=== PATIENT | male | born 1965 | race Caucasian/White ===

== ENCOUNTER 2022-08-14 10:14 | Outpatient (CLI) | payer OTHER, SELFPAY ==
--- OUTSIDE RECORDS SUMMARY | 2022-08-14 10:18 | XMS_ITS | Encounter Summary ---
:1965 Author Organization [facility] Address [address] [place] [address] Care Team Providers Name Role Phone Unavailable Primary Care Provider Unavailable Encounter Details Date Type Department Care Team Description 06/25/2018 Lab RST RO LMP Wil Stoddard, Malignant Neoplasm Of [address] [facility] [place] [address] ILYA Henderson [id number] Social History Tobacco Use Types Packs/Day Years Used Date Smoking Tobacco: Never Assessed Sex Assigned at Date Recorded Male 07/18/2018 7:58 AM CDT documented as of this encounter Plan of Treatment Not on filedocumented as of this encounter Procedures Procedure Name Priority Date/Time Associated Diagnosis Comme nts PATHOLOGY REVIEW OF Routine 06/27/2018 10:38 AM Malignant Neop lasm Results for this OUTSIDE MATERIAL CDT Of Face Basal Cell proce dure are in the results section. documented in this encounter Results Pathology Review of Outside Material (06/27/2018 10:38 AM CDT) Component Value Ref Test Analysis Performed At [facility] Range Method Time Signature Material Received A. [id number]: Skin, forehead 01/2018 [facility] ? 1 stained slide, 1 block 3:41 PM LABORATORIES - CDT [facility] Participated in Romario Avitia 07/01/2018 [facility] C crys D.O.-Pathology 3:41 PM LABORATORIES - Interpretation Fellow [facility] Report Oswald Saucedo M.D. 07/01/[address] [facility] electronically I verify that I have examined all relevant slides/ma terials 3:41 PM LABORATORIES - signed by for the specimen(s) and rendered or confirmed the diagnosi s. [facility] 07/01/2018 [facility] 3:41 PM LABORATORIES - CDT [facility] Interpretation FINAL DIAGNOSIS 07/01/2018 [facility] JAILYN A. ??Skin, forehead, [id number], 06/05/2018: ??Nodular and 3:41 PM LABORATORIES - infiltrative basal cell carcinoma, involving biopsy border CDT [facility] Specimen Anatomical Collection Method Collection Time Receive d Time (Source) Location / / Volume Laterality Varies 06/27/2018 10:38 06/27/2018 AM CDT 10:38 AM CDT Narrative This result has an attachment that is no t available. Wil Stoddard M.D. LAB SURG PATH ORDERABLES Performing Organization Address City/State/ZIP Code Phon e Number [facility] LABORATORIES - [address] [place], [place] [address] [facility] documented in this encounter Visit Diagnoses Diagnosis Malignant Neoplasm Of Face Basal Cell documented in this encounter
--- OUTSIDE RECORDS SUMMARY | 2022-08-14 10:18 | XMS_ITS | Clinical Summary ---
:1965 Author Organization [facility] [place] [address] Care Team Providers Name Role Phone Luis Daily MD Primary Care Provider Allergies No known active allergies Medications Medication Sig Dispensed Refills Start Date End Date Status meloxicam 15 mg Take 1 Tablet (15 30 tablet. 1 02/03/2021 Active tabletIndications: DDD mg) by mouth once (degenerative disc daily. disease), lumbar Active Problems No known active problems Encounters Date Type Specialty Care Team Description 06/18/2022 Office Visit Deysi Figueroa, Ear Problem (Recheck L PA ear); Sinus Pro blem (Still having sinus is sues/) 06/18/2022 Travel 06/11/2022 Telephone Deysi Figueroa, [facility] PA from Last 3 Months Immunizations Name Administration Dates Next Due COVID-19 vaccine (Moderna 02/24/2021, 01/27/2021 100mcg/0.5mL) PAVITHRA HONG Hepatitis A (Adult) 01/10/2011 Hepatitis B, Unspecified 04/04/1994, 02/28/1994 Influenza Virus, Unspecified 09/24/1994 Influenza, IIV3 (Age 6-35 mos) 08/10/2011 Influenza, IIV3 (Age >=3 years) 08/06/2014 Influenza, IIV4 (=>6mos) MDV 08/02/2020, 08/21/2019, 018, 08/09/2017, 08/13/2016, 08/05/2015 Tdap 05/13/2020 Social History Tobacco Use Types Packs/Day Years Used Date Never Smoker Smokeless Tobacco: Never Used Tobacco Cessation: Counseling Given: Yes Alcohol Use Standard Drinks/Week Comments Yes 0 (1 standard drink = 0.6 oz pure alcoho l) 2 beers on weekends Alcohol Habits Answer Date Recorded How often do you have a drink containing alcohol? Not asked How many drinks containing alcohol do you have on a Not aske d typical day when you are drinking? How often do you have six or more drinks on one Not asked occasion? Comment: 2 beers on weekends 03/03/2018 Sex Assigned at Date Recorded Not on file Obstetrics History Last Filed Vital Signs Vital Sign Reading Time Taken Comments Blood Pressure 95/61 06/18/2022 2:57 PM CDT Pulse 92 06/18/2022 2:57 PM CDT Temperature 36.9 ??C (98.4 ??F) 06/18/2022 2:57 PM CDT Respiratory Rate 16 03/14/2021 8:39 AM CDT Oxygen Saturation 97% 05/02/2022 1:44 PM CDT Inhaled Oxygen Concentration - - Weight 88.9 kg (196 lb) 06/18/2022 2:57 PM CDT Height - - Body Mass Index - - Plan of Treatment Health Maintenance Due Date Last Done Comments BMI (ht and wt on same day) for 1982 age 18+ Hepatitis C screening for age 0604/05/1982 18-79 Colonoscopy through age 75 2009 Lipids for age 45-75 2009 Zoster (shingles) series for age 0604/05/2014 50+ (1 of 2) Depression screening for age 12+ 03/20/2022 03/20/2021 COVID-19 vaccine series (4 - 04/24/2022 02/27/2022, 021, Booster for Moderna series) 01/27/2021 Influenza for age 50-64 06/28/2022 08/02/2020, 08/21/2019, 08/19/2018, Additional history exists Tetanus booster 05/13/2030 05/13/2020 Tdap Completed 05/13/2020 Results Not on filefrom Last 3 Months Insurance Payer Benefit Plan / Subscriber ID Effective Dates Phone Addre ss Type Group WC WORKERS COMP [facility] [id number] 2013-Prese [id number] [id number] MEDICA MEDICA CHOICE [id number] 2021-Present [address] [address] [place] [address] (Work) [id number] Vince Haywood Workers Comp Self 1965 [address] (Home) [place] [phone] [place], [place] (Work) [id number] Vince Haywood Workers Comp Self 1965 [address] (Home) [place] [address] Care Teams Labeling Specialist Relationship Specialty Start Date End Date Luis Daily MD PCP - General Internal Medicine 09/23/191999 [place] [address]
--- OUTSIDE RECORDS SUMMARY | 2022-08-14 10:18 | XMS_ITS | Encounter Summary ---
:1965 Author Organization [facility] Address [address] [place] [address] Care Team Providers Name Role Phone Unavailable Primary Care Provider Unavailable Reason for Visit Appointment Request (Routine) - Closed Specialty Diagnoses / Procedures Referred By Contact Refer red To Contact Dermatology [facility] [address] [facility] [address] [address] Referral ID Status Reason Start Date Expiration Date Visits Requ ested Visits Authorized [id number] Closed 06/17/2018 06/17/2019 1 Encounter Details Date Type Department Care Team Description 08/13/2018 Procedure visit Department of Des Tony Neoplasm Dermatology in [place] Of Face Basal Cell [place], [place] [address] [place] [address] (Primary Dx) [address] [place] [phone] Social History Tobacco Use Types Packs/Day Years Used Date Smoking Tobacco: Never Assessed Sex Assigned at Date Recorded Male 07/18/2018 7:58 AM CDT documented as of this encounter Last Filed Vital Signs Vital Sign Reading Time Taken Comments Blood Pressure 120/77 08/13/2018 9:32 AM CDT Pulse 75 08/13/2018 9:32 AM CDT Temperature - - Respiratory Rate - - Oxygen Saturation - - Inhaled Oxygen Concentration - - Weight - - Height - - Body Mass Index - - documented in this encounter Procedure Notes Wil Stoddard M.D. - 08/13/2018 9:30 AM CDT PREOP INDICATION: REMOVAL. Date of Surgery: 08/13/2018 Surgeon: Dr. Tony Polishing Machine Operator Helper: Dr. Wil Stoddard M.D. Location: [facility] Floor:16 Room:[facility] Visit Type: Outpatient PostOp Diagnosis: Recurrent nodular basal cell carcinoma Anatomic Location: Forehead Preoperative size: 1.2 x 1.3 cm [facility] number: 7/8 Procedure: Mohs micrographic surgery with complex layered closure. Prior to the procedure, final verification of the patient identity and correct marked surgical site was performed. Procedural pause conducted to verify: correct patient identity, procedure to be performed and as applicable, correct side and site, correct patient position, and availability of implants, special equipment or special requirements. INFORMED CONSENT Discussed the risks, benefits, alternatives, and the necessity of other members of the healthcare team participating in the procedure. All questions answered and consent given. PATIENT EDUCATION Ready to learn, no apparent learning barriers were identified; learning preferences include listening. Explained diagnosis and treatment plan; patient expressed understanding of the content. Preoperative medications: None The anesthesia used was 1% lidocaine and 0.25% bupivacaine with 1:200,000 epinephrine. The skin was prepped in a sterile fashion with Hibiclens. Histologic tumor-free marginswere obtained in 1 stages (2 blocks) by standard Mohs micrographic techniques with the Mohs surgeon performing both the surgery and pathology. Postoperative size: 1.8 x 1.7 cm. Anesthesia with 1% lidocaine with epinephrine 1:200,000 and another sterile prep were performed. A complex layered closure was planned, and Burow's triangles were excised from opposite poles of the defect in the direction of the skin tension lines. The wound was extensively undermined, and hemostasis was obtained with electrocoagulation. The wound edges were closed with 4-0 Vicryl and 5-0 Monocryl subcutaneous sutures and 6-0 nylon skin sutures. Postoperative length: 4.2 cm. Estimated blood loss: Minimal. Complications: None. Wound care: Routine. Postoperative medications: None Associated attestation - Des Tony M.D. - 08/13/2018 1:19 PM CDT Having reviewed the history, examined the patient, as well as discussed management, I agree with theimpression and plan as documented by Wil Stoddard MD ([phone]) who assisted me. In addition, I was also present for the critical portion and immediately available for the entire procedure we performed. documented in this encounter Consult Notes Wil Stoddard M.D. - 08/13/2018 9:30 AM CDT Referral Susie Simpson Chief Complaint Recurrent nodular basal cell carcinoma, forehead HISTORY OF THE PRESENT ILLNESS Vince Haywood is a pleasant 53 y.o. male who comes in for definitive surgical treatment of a longstanding and recurrent basal cell carcinoma involving the midline forehead. [facility] this lesion on 07/18/2018. He has had this growth for approximately 15 years. It has been treated with excision and cryotherapy on multiple previous occasions. He was recently rebiopsied in May by outside providers revealing the recurrence. He has no other skin concerns today. He is accompanied by his . The dermatologic surgery preoperative information sheet was reviewed. The patient endorses a historyof prior skin cancer. The patient denies a history heart disease, pacemaker, defibrillator, lung disease, liver disease, infectious disease, diabetes, organ transplant, bleeding problems or high blood pressure. The patient denies artificial joints or other implants. He does not require antibiotics prior to other surgical procedures. Daily aspirin: None Anticoagulation: None Tobacco use: None Alcohol use: Occasionally PHYSICAL EXAM Vitals: Vitals: 08/13/18 0932 BP: 120/77 Pulse: 75 General: Awake, alert, in no acute distress, and with appropriate affect. Skin: A limited skin examination was performed per patient preference. On midline forehead there is again visualized a small flesh-colored scar an abnormal nodular texture to the skin concerning for residual basal cell carcinoma. There is 1 small scaly portion at the inferior for o'clock position of the lesion concerning for recurrent disease. The whole site measures approximately 1.2 x 1.3 cm in size. IMPRESSION AND PLAN #1 Recurrent nodular basal cell carcinoma, forehead The patient presents to our surgical area today for definitive treatment of the above lesion. Given the nature and location of this lesion we recommended Mohs surgery. We discussed the benefits of lesion removal today. We discussed the risks including, but not limited to, infection, bleeding, pain, scar formation, and lesion recurrence. We discussed the slightly lower clearance rates with recurrent lesions, approximately 95%. We also discussed the risk of damage to sensory and motor nerves in this area both temporary and permanent. Patient wished to proceed. In brief, the lesion was cleared in 1 stages and closed in a vertical primary fashion. Skin sutures that need to be removed in 7 days. The patient tolerated the procedure well. Please see the operative note for further details. PROCEDURAL PAUSE Procedural pause conducted to verify: correct patient identity, procedure to be performed, and as applicable, correct side and site, correct patient position, and availability of implants, special equipment, or special requirements. PATIENT EDUCATION Ready to learn. No apparent learning barriers were identified. Learning preferences include listening. Explained diagnosis and treatment plan; patient/guardian of patient expressed understanding of thecontent. INFORMED CONSENT Discussed the risks, benefits, alternatives, and the necessity of other members of the healthcare team participating in the procedure. All questions answered and consent given. Associated attestation - Des Tony M.D. - 08/13/2018 1:18 PM CDT Having reviewed the history, examined the patient, as well as discussed management, I agree with theimpression and plan as documented by Wil Stoddard MD ([phone]) who assisted me. In addition, I was also present for the critical portion and immediately available for the entire procedure we performed. documented in this encounter Plan of Treatment Pending Results Name Type Priority Associated Diagnoses Date/Ti az MOHS SURGICAL CASE Pathology and Routine 08/13/20 18 1:29 PM Cytology CDT documented as of this encounter Visit Diagnoses Diagnosis Malignant Neoplasm Of Face Basal Cell - Primary documented in this encounter Administered Medications Active Administered Medications - up to 3 most recent administrations Medication Order MAR Action Action Date Dose Rate Site parbgjazics-ckaiqqnpf-OVLYRHPoqgu Given 08/13/2018 12:44 PM CDT 4 mL 0.25%-1%-1:200,000 injection 2-25 mL 2-25 mL, injection, As needed, may repeat if the patient complains of pain/discomfort at the site up to 50 mL for entire procedure, Starting on Sat08/13/18 at 0934 lidocaine-EPINEPHrine 1%-1:200,000 injection Given 8 10:00 AM CDT 6 mL 2-50 mL (XYLOCAINE W/EPI) 2-50 mL, injection, As needed, may repeat if the patient complains of pain/discomfort at the site up to 50 mL for entire procedure, Starting on Sat08/13/18 at 0934 documented in this encounter
--- OUTSIDE RECORDS SUMMARY | 2022-08-14 10:18 | XMS_ITS | Encounter Summary ---
:1965 Author Organization [facility] Address [address] [place] [address] Care Team Providers Name Role Phone Unavailable Primary Care Provider Unavailable Encounter Details Date Type Department Care Team Description 06/25/2018 Abstract DATA ABSTRACTION Provider, Historical Social History Tobacco Use Types Packs/Day Years Used Date Smoking Tobacco: Never Assessed Sex Assigned at Date Recorded Male 07/18/2018 7:58 AM CDT documented as of this encounter Plan of Treatment Not on filedocumented as of this encounter Visit Diagnoses Not on filedocumented in this encounter
--- OUTSIDE RECORDS SUMMARY | 2022-08-14 10:18 | XMS_ITS | Encounter Summary ---
:1965 Author Organization [facility] Address [address] [place] [address] Care Team Providers Name Role Phone Unavailable Primary Care Provider Unavailable Encounter Details Date Type Department Care Team Description 06/25/2018 Orders Only Department of Wil Stoddard, Malignant Neoplasm Of Dermatology in M.D. Face Basal Cell [place], [place] ILYA Henderson (Primary Dx) [address] [facility] [address] [place] [address] Social History Tobacco Use Types Packs/Day Years Used Date Smoking Tobacco: Never Assessed Sex Assigned at Date Recorded Male 07/18/2018 7:58 AM CDT documented as of this encounter Plan of Treatment Not on filedocumented as of this encounter Results Pathology Review of Outside Material (06/27/2018 10:38 AM CDT) Component Value Ref Test Analysis Performed At [facility] Range Method Time Signature Material Received A. [id number]: Skin, forehead 01/2018 [facility] ? 1 stained slide, 1 block 3:41 PM LABORATORIES - [facility] Participated in Romario Avitia 07/01/2018 [place] [facility] C the D.O.-Pathology 3:41 PM LABORATORIES - Interpretation Fellow [facility] Report Oswald Saucedo M.D. 07/01/2018 [facility] electronically I verify that I have examined all relevant slides/ma terials 3:41 PM LABORATORIES - signed by for the specimen(s) and rendered or confirmed the diagnosi s. [facility] 07/01/2018 [facility] 3:41 PM LABORATORIES - [facility] Interpretation FINAL DIAGNOSIS 07/01/2018 [facility] JAILYN A. ??Skin, forehead, [id number], 06/05/2018: ??Nodular and 3:41 PM LABORATORIES - infiltrative basal cell carcinoma, involving biopsy border CDT [facility] Specimen Anatomical Collection Method Collection Time Receive d Time (Source) Location / / Volume Laterality Varies 06/27/2018 10:38 06/27/2018 AM CDT 10:38 AM CDT Narrative This result has an attachment that is no t available. Wil Stoddard M.D. LAB SURG PATH ORDERABLES Performing Organization Address City/State/ZIP Code Phon e Number [facility] LABORATORIES - [address] [place], [place] [address] [facility] documented in this encounter Visit Diagnoses Diagnosis Malignant Neoplasm Of Face Basal Cell - Primary documented in this encounter
--- OUTSIDE RECORDS SUMMARY | 2022-08-14 10:18 | XMS_ITS | Encounter Summary ---
:1965 Author Organization [facility] Address [address] [place] [address] Care Team Providers Name Role Phone Unavailable Primary Care Provider Unavailable Encounter Details Date Type Department Care Team Description 08/13/2018 Ancillary Procedure Department of Dermatology Social History Tobacco Use Types Packs/Day Years Used Date Smoking Tobacco: Never Assessed Sex Assigned at Date Recorded Male 07/18/2018 7:58 AM CDT documented as of this encounter Plan of Treatment Not on filedocumented as of this encounter Procedures Procedure Name Priority Date/Time Associated Comments Diagnosis DERMATOLOGY IMAGE Routine 08/13/2018 12:10 Result s for this EXAM PM CDT procedure are i n the results section. documented in this encounter Results DERMATOLOGY IMAGE EXAM (08/13/2018 12:10 PM CDT) Specimen (Source) Anatomical Collection Method Collection Time Re ceived Time Location / / Volume Laterality 08/13/2018 12:00 PM CDT Narrative [facility] - 08/13/2018 1:17 PM CDT This order has been created and auto-finalized to support the import of images acquired without order. The clini lucia documentation to support these images can be found on the encounter eros t produced images. Provider Not In System IMG NON RAD IMAGING PROCEDUR ES Performing Organization Address City/State/ZIP Code Phon e Number [facility] documented in this encounter Visit Diagnoses Not on filedocumented in this encounter
--- OUTSIDE RECORDS SUMMARY | 2022-08-14 10:18 | XMS_ITS | Encounter Summary ---
:1965 Author Organization [facility] Address [address] [place] [address] Care Team Providers Name Role Phone Unavailable [...] Associated Comments Diagnosis DERMATOLOGY IMAGE Routine 08/13/2018 12:15 Result s for this EXAM PM CDT procedure are i n the results section. documented in this encounter Results DERMATOLOGY IMAGE EXAM (08/13/2018 12:15 PM CDT) Specimen (Source) Anatomical Collection Method [...]
--- OUTSIDE RECORDS SUMMARY | 2022-08-14 10:18 | XMS_ITS | Encounter Summary ---
:1965 Author Organization [facility] Address [address] [place] [address] Care Team Providers Name Role Phone Unavailable [...] Associated Comments Diagnosis DERMATOLOGY IMAGE Routine 08/13/2018 12:00 Result s for this EXAM PM CDT procedure are i n the results section. documented in this encounter Results DERMATOLOGY IMAGE EXAM (08/13/2018 12:00 PM CDT) Specimen (Source) Anatomical Collection Method [...]
--- OUTSIDE RECORDS SUMMARY | 2022-08-14 10:18 | XMS_ITS | Encounter Summary ---
:1965 Author Organization [facility] Address [address] [place] [address] Care Team Providers Name Role Phone Unavailable Primary Care Provider Unavailable Encounter Details Date Type Department Care Team Description 02/24/2021 Immunization Department of [facility] Hua Aggarwal For COVID-19 Medicine, [facility] Marjorie Fowler Vaccine Immunization [facility], in [address] [address] [place] [address] [phone] Social History Tobacco Use Types Packs/Day Years Used Date Smoking Tobacco: Never Assessed Sex Assigned at Date Recorded Male 07/18/2018 7:58 AM CDT documented as of this encounter Plan of Treatment Not on filedocumented as of this encounter Visit Diagnoses Diagnosis Encounter For COVID-19 Vaccine Immunizat ion documented in this encounter
--- OUTSIDE RECORDS SUMMARY | 2022-08-14 10:18 | XMS_ITS | Clinical Summary ---
:1965 Author Organization [facility] Address [address] [place] [address] Care Team Providers Name Role Phone Unavailable Primary Care Provider Unavailable Source Comments Patient records contain information from all sites at [facility]. For routine questions regarding patient records, call [phone] during business hours, M-F 8:00 AM - 5:00 PM Central Time. Record requests for emergency care only can be directed to [phone] at any time.[facility] Allergies No known active allergies Medications Hospital, Clinic, or Other Ordered Dose Route Frequency Start Date End Date Status Facility Administered Medication lidocaine-EPINEPHrine 2 - 50 mL inj As needed 08/13/2018 Active 1%-1:200,000 injection 2-50 mL (XYLOCAINE W/EPI) [id number] 2 - 25 mL inj As needed 08/13/2018 Active rine 0.25%-1%-1:200,000 injection 2-25 mL Active Problems No known active problems Immunizations Name Administration Dates Next Due SARS-COV-2 (COVID-19) - MODERNA 02/24/2021, 01/27/2021 Social History Tobacco Use Types Packs/Day Years Used Date Smoking Tobacco: Never Assessed Sex Assigned at Date Recorded Male 07/18/2018 7:58 AM CDT Last Filed Vital Signs Vital Sign Reading Time Taken Comments Blood Pressure 120/77 08/13/2018 9:32 AM CDT Pulse 75 08/13/2018 9:32 AM CDT Temperature - - Respiratory Rate - - Oxygen Saturation - - Inhaled Oxygen Concentration - - Weight - - Height - - Body Mass Index - - Plan of Treatment Health Maintenance Due Date Last Done Comments CT Colonography 1965 Cologuard 1965 Colonoscopy 1965 Colorectal Cancer Screening 1965 FIT 1965 Fasting Glucose for 1965 Diabetes Screening HIV Screening 1965 Hepatitis C Screening 1965 Lipid (Cholesterol) 1965 Screening Hepatitis B Vaccines (3 of 06/20/1994 04/04/1994, 4 3 - 3-dose series) Zoster Vaccines (1 of 2) 2014 Depression Screening 10/28/2021 (Annual PHQ-2) COVID-19 Vaccine (4 - 04/24/2022 02/27/2022, 02/24/2021, Booster for Moderna series) 01/27/2021 Influenza Vaccine (#1) 2022 07/27/2021, 08/02/2020, 08/21/2019, Additional history exists DTaP,Tdap,and Td Vaccines 05/13/2030 05/13/2020 (2 - Td or Tdap) Pneumococcal vaccine (0-64 Aged Out No lo nger eligible years) based on patient 's age to complete this topic Insurance Payer Benefit Plan / Subscriber ID Effective Dates Phone Addre ss Type Group MEDICA MEDICA [id number] 2017-Present [phone] [address] [address] [place] [address]
--- OUTSIDE RECORDS SUMMARY | 2022-08-14 10:18 | XMS_ITS | Encounter Summary ---
:1965 Author Organization [facility] Address [address] [place] [address] Care Team Providers Name Role Phone Unavailable [...] Associated Comments Diagnosis DERMATOLOGY IMAGE Routine 08/13/2018 12:05 Result s for this EXAM PM CDT procedure are i n the results section. documented in this encounter Results DERMATOLOGY IMAGE EXAM (08/13/2018 12:05 PM CDT) Specimen (Source) Anatomical Collection Method [...]
--- OUTSIDE RECORDS SUMMARY | 2022-08-14 10:18 | XMS_ITS | Encounter Summary ---
:1965 Author Organization [facility] Address [address] [place] [address] Care Team Providers Name Role Phone Unavailable Primary Care Provider Unavailable Encounter Details Date Type Department Care Team Description 07/18/2018 Ancillary Procedure Department of Dermatology Social History Tobacco Use Types Packs/Day Years Used Date Smoking Tobacco: Never Assessed Sex Assigned at Date Recorded Male 07/18/2018 7:58 AM CDT documented as of this encounter Plan of Treatment Not on filedocumented as of this encounter Procedures Procedure Name Priority Date/Time Associated Comments Diagnosis DERMATOLOGY IMAGE Routine 07/18/2018 11:23 Result s for this EXAM AM CDT procedure are i n the results section. documented in this encounter Results DERMATOLOGY IMAGE EXAM (07/18/2018 11:23 AM CDT) Specimen (Source) Anatomical Collection Method Collection Time Re ceived Time Location / / Volume Laterality 07/18/2018 12:00 PM CDT Narrative [facility] - 07/18/2018 11:23 AM CDT This order has been created and [...]
--- OUTSIDE RECORDS SUMMARY | 2022-08-14 10:18 | XMS_ITS | Encounter Summary ---
:1965 Author Organization [facility] Address [address] [place] [address] Care Team Providers Name Role Phone Unavailable Primary Care Provider Unavailable Reason for Referral Specialty Diagnoses / Procedures Referred By Contact Refer red To Contact [facility] [address] [place] [address] Referral ID Status Reason Start Date Expiration Date Visits Requ ested Visits Authorized Reason for Visit Appointment Request (Routine) - Closed Specialty Diagnoses / Procedures Referred By Contact Refer red To Contact Family Medicine Referral ID Status Reason Start Date Expiration Date Visits Requ ested Visits Authorized [id number] Closed 01/24/2021 01/24/2022 1 1 Encounter Details Date Type Department Care Team Description 01/27/2021 [facility], [facility] (Primar y Dx) [place] [address] [address] Social History Tobacco Use Types Packs/Day Years Used Date Smoking Tobacco: Never Assessed Sex Assigned at Date Recorded Male 07/18/2018 7:58 AM CDT documented as of this encounter Plan of Treatment Scheduled Referrals Name Type Priority Associated Diagnoses Order S chedule Covid immunization Outpatient Referral Routine Encounter For E xpected: office visit Covid-19 Vaccine 02/24/2021, Subsequent; 28 days Immunization Expires: 01/28/2024 documented as of this encounter Visit Diagnoses Diagnosis Encounter For COVID-19 Vaccine Immunizat ion - Primary documented in this encounter
--- OUTSIDE RECORDS SUMMARY | 2022-08-14 10:18 | XMS_ITS | Encounter Summary ---
:1965 Author Organization [facility] Address [address] [place] [address] Care Team Providers Name Role Phone Unavailable Primary Care Provider Unavailable Reason for Visit Appointment Request (Routine) - Closed Specialty Diagnoses / Procedures Referred By Contact Refer red To Contact Dermatology Zenobia Bronson P.A . [address] [facility], [address] [address] Referral ID Status Reason Start Date Expiration Date Visits Requ ested Visits Authorized [id number] Closed 06/25/2018 06/25/2019 1 Encounter Details Date Type Department Care Team Description 07/18/2018 Comprehensive Visit Department of Wil Stoddard Neoplasm Of Face Basal Cell (Primary Dx); Dermatology franklin Fowler M.D. Keratosis Seborrheic [place], [place] ILYA Henderson [address] [facility] [address] [place] [address] Social History Tobacco Use Types Packs/Day Years Used Date Smoking Tobacco: Never Assessed Sex Assigned at Date Recorded Male 07/18/2018 7:58 AM CDT documented as of this encounter Consult Notes Wil Stoddard M.D. - 07/18/2018 8:30 AM CDT SUBJECTIVE REFERRAL SOURCE: Susie Simpson CHIEF COMPLAINT / REASON FOR CONSULT Consultation prior to Mohs surgery for basal cell carcinoma, forehead Supervising Physician: Dr. Tang. Available but not needed. HISTORY OF PRESENT ILLNESS Vince Haywood is a very pleasant 53 y.o. gentleman coming to us today from [place], [place] for evaluation of a nodular and infiltrative basal cell carcinoma involving the mid forehead. This is the 1st time he is being seen in our department. He has a prior history of precancerous lesions being treated with cryotherapy as well as 1 nonmelanoma skin cancer that was excised from his left forearm several years ago. He follows with dermatology providers back home. He has had this lesion on his mid forehead for approximately 15 years. It has been punch biopsied and frozen on several occasions in the past. He has known he has had a BCC in this area for some time now. Given the fact that the lesion continues to recur he was referred for Mohs surgery in our department. He currently has a date scheduled with Dr. Tony on 08/13/2018 for Mohs surgery of this site. This site was again recently recent ample on 06/05/2018 by outside providers. His slides were reviewed internally by our dermatopathologist revealing basal cell carcinoma with nodular and infiltrative features. He has many questions today regarding the nature of this skin cancer and Mohs surgery. Additionally he has scaly spot on his nose he would like to have evaluated. The spot has not received any treatment. 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 Otherwise well and in his normal state of health today. He doesget regular skin checks by his local provider. No other skin lesions of concern today. OBJECTIVE PHYSICAL EXAM General: Well-appearing male, stated age, no acute distress, alert, oriented, pleasant, interactive Skin Examination: On the mid forehead there is a approximately 1 x 1.5 cm flesh- colored plaque consistent with a recently biopsied area with some residual basal cell carcinoma likely on the periphery. On the nasal dorsum there is a thin scaly translucent papule consistent with an early seborrheic keratosis versus an actinic keratosis. No notable features on dermoscopy. No other concerning lesions seen in the head neck area. No adenopathy felt palpation of the neck or submandibular area. ASSESSMENT / PLAN 1. 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 Seborrheic keratosis versus actinic keratosis, mid nasal dorsum It was a pleasure to see him in our Dermatology Clinic today. I had an extensive discussion with himregarding the nature of basal cell carcinoma, particularly his type of lesion as well as our treatment approach to these types of lesions. We primarily discussed Mohs treatment today. I discussed that with recurrent lesions are clearance rates are approximately 95-97% for this type of lesion. This is still our best modality for treating this type of lesion. I discussed with him the size of the defectthat he can be expecting as well as our likely repair options with either vertical primary or horizontal primary closure verses flap rearrangement. We discussed the possible side effects including injury to the sensory nerves on the forehead. We discussed the possibility of scar formation. We discussed top sutures of versus glue and we can revisit this at the time of his surgery. Again, he is currently scheduled with Dr. Tony on 08/13/2018 for treatment of this site. He will let me know if he hasany questions prior to that time. I discussed with him that I am not overtly concerned regarding the new scaly papule on the mid nasaldorsum. I do favor this to be seborrheic keratosis versus an early actinic keratosis. I discussed observation versus cryotherapy versus shave biopsy today. Ultimately he is most interested in pursuing cryotherapy at this time which I think is reasonable. However, he wishes to do this at a later date. We will plan to observe the area for the time being. We discussed concerning features of skin cancer to be aware of. He will let me know if he notices any these features. All questions were addressed today to the best my abilities. He was pleased with the encounter. PATIENT EDUCATION Ready to learn. No apparent learning barriers were identified. Learning preferences include listening. Explained diagnosis and treatment plan; patient/guardian of patient expressed understanding of thecontent. documented in this encounter Plan of Treatment Not on filedocumented as of this encounter Visit Diagnoses Diagnosis Malignant Neoplasm Of Face Basal Cell - Primary Keratosis Seborrheic documented in this encounter
[2022-08-14 17:32] LABS: Albumin* 4.6 g/dL (3.3-5.0); Chloride* 100 mmol/L (96-114); Sodium* 135 mmol/L (135-149)
[2022-08-14 17:33] LABS: Potassium* 4.9 mmol/L (3.6-5.1)
[2022-08-14 17:34] LABS: Creatinine* 0.9 mg/dL (0.5-1.5); Estimated Glomerular Filt Rate 99 ml/min
[2022-08-14 17:35] LABS: Alkaline Phosphatase* 66 U/L (40-150); Aspartate Amino Transferase* 24 U/L (12-35); Bilirubin Total* 0.9 mg/dL (0.1-1.5); Carbon Dioxide* 26 mmol/L (20-32); Total Protein* 7.8 g/dL (6.0-8.3)
[2022-08-14 17:36] LABS: Alanine Aminotransferase* 13 U/L (4-50); Blood Urea Nitrogen* 20 mg/dL (7-30); Calcium* 9.3 mg/dL (8.4-10.6); Glucose* 99 mg/dL (60-115)
[2022-08-14 17:38] LABS: C Reactive Protein* 0.6 mg/dL (0.5-1.0)
== END 2022-08-14 10:15 | disposition home or self-care (01) ==
PROVIDERS: PCP Family Medicine; Visit Provider Family Medicine
DX: Z00.00 Encounter for general adult medical examination without abnormal findings (principal); R10.9 Unspecified abdominal pain; Z12.5 Encounter for screening for malignant neoplasm of prostate
CPT/HCPCS: 80053; 84153; 86140

== ENCOUNTER 2022-10-02 07:00 | Outpatient (CLI) | payer OTHER, SELFPAY ==
--- OUTSIDE RECORDS SUMMARY | 2022-10-02 07:02 | XMS_ITS | Encounter Summary ---
:1965 Author Organization [facility] Address [address] [place] [address] Care Team Providers Name Role Phone Unavailable [...]
--- OUTSIDE RECORDS SUMMARY | 2022-10-02 07:02 | XMS_ITS | Encounter Summary ---
:1965 Author Organization [facility] Address [address] [place] [address] Care Team Providers Name Role Phone Unavailable Primary Care Provider Unavailable Encounter Details Date Type Department Care Team Description 02/24/2021 Immunization Department of [facility] Hua Aggarwal For COVID-19 Medicine, [facility] Marjorie Fowler Vaccine Immunization [facility], in [address] [address] [address] [place] [address] [phone] Social History Tobacco Use Types Packs/Day Years Used Date Smoking Tobacco: Never Assessed Sex Assigned at Date Recorded Male 07/18/2018 7:58 AM CDT documented as of this encounter Plan of Treatment Not on filedocumented as of this encounter Visit Diagnoses Diagnosis Encounter For COVID-19 Vaccine Immunizat ion documented in this encounter
--- OUTSIDE RECORDS SUMMARY | 2022-10-02 07:02 | XMS_ITS | Encounter Summary ---
:1965 Author Organization [facility] Address [address] [place] [address] Care Team Providers Name Role Phone Unavailable [...]
--- OUTSIDE RECORDS SUMMARY | 2022-10-02 07:02 | XMS_ITS | Clinical Summary ---
:[address] [facility] Address [address] [place] [address] Care Team Providers Name Role Phone Unavailable Primary Care Provider Unavailable Source Comments Patient records contain information from all sites at [facility]. For routine questions regarding patient records, call [phone] during business hours, M-F 8:00 AM - 5:00 PM Central Time. Record requests for emergency care only can be directed to [phone] at any time.[facility] Allergies No known active allergies Medications Hospital, Clinic, or Other Ordered Dose Route Frequency Start Date End Date Status Facility Administered Medication lidocaine-EPINEPHrine 2 - 50 mL inj As needed 08/13/2018 Active 1%-1:200,000 injection 2-50 mL (XYLOCAINE W/EPI) [id number] 2 - 25 mL inj As needed [...] 1965 Screening Hepatitis B Vaccines (3 of 09/04/1994 04/04/1994, 4 3 - 19+ 3-dose series) Zoster Vaccines (1 of 2) 2014 Depression Screening 10/28/2021 (Annual PHQ-2) DTaP,Tdap,and Td Vaccines 05/13/2030 05/13/2020 (2 - Td or Tdap) COVID-19 Vaccine Completed 08/14/2022, 02/27/2022, 02/24/2021, Additional history exists Influenza Vaccine Completed 08/14/2022, 07/27/2021, 08/02/2020, Additional history exists Pneumococcal vaccine (0-64 Aged Out No lo nger eligible years) based on patient 's age to complete this topic Insurance Payer Benefit Plan / Subscriber ID Effective Dates Phone Addre ss Type Group MEDICA MEDICA [id number] 2017-Present [phone] [address] [address] [place] [address]
--- OUTSIDE RECORDS SUMMARY | 2022-10-02 07:03 | XMS_ITS | Encounter Summary ---
:1965 Author Organization [facility] Address [address] [place] [address] Care Team Providers Name Role Phone Unavailable [...]
--- OUTSIDE RECORDS SUMMARY | 2022-10-02 07:03 | XMS_ITS | Encounter Summary ---
:1965 Author Organization [facility] Address [address] [place] [address] Care Team Providers Name Role Phone Unavailable Primary Care Provider Unavailable Reason for Visit Appointment Request (Routine) - Closed Specialty Diagnoses / Procedures Referred By Contact Refer red To Contact Dermatology Zenobia Bronson P.A . [address] [facility], [address] [address] Referral ID Status Reason Start Date Expiration Date Visits Requ ested Visits Authorized [id number] Closed 06/25/2018 06/25/2019 1 Encounter Details Date Type Department Care Team Description 07/18/2018 Comprehensive Visit Department of Wil Stoddard Neoplasm Of Face Basal Cell (Primary Dx); Dermatology franklin Fowler M.D. Keratosis Seborrheic [place], [place] ILYA Henderson [address] [facility] [address] [place] [address] Social History Tobacco Use Types Packs/Day Years [...] y.o. gentleman coming to us today from [place], [place] for evaluation of a nodular and [...] not received any treatment. 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 Otherwise well and [...]
--- OUTSIDE RECORDS SUMMARY | 2022-10-02 07:03 | XMS_ITS | Encounter Summary ---
:1965 Author Organization [facility] Address [address] [place] [address] Care Team Providers Name Role Phone Unavailable [...]
--- OUTSIDE RECORDS SUMMARY | 2022-10-02 07:03 | XMS_ITS | Encounter Summary ---
:1965 Author Organization [facility] Address [address] [place] [address] Care Team Providers Name Role Phone Unavailable Primary Care Provider Unavailable Reason for Visit Appointment Request (Routine) - Closed Specialty Diagnoses / Procedures Referred By Contact Refer red To Contact Dermatology Zenobia Bronson P.A . [address] [facility], [address] [address] Referral ID Status Reason Start Date Expiration Date Visits Requ ested Visits Authorized [id number] Closed 06/17/2018 06/17/2019 1 Encounter Details Date Type Department Care Team Description 08/13/2018 Procedure visit Department of Des Tony Neoplasm Dermatology in [place] Of Face Basal Cell [place], [place] [address] [place] [address] (Primary Dx) [address] [place] [address] [phone] Social History Tobacco Use Types Packs/Day Years [...] Date of Surgery: 08/13/2018 Surgeon: Dr. Tony Dba: Dr. Wil Stoddard M.D. Location: [facility] Floor:16 Room:[facility] Visit Type: Outpatient PostOp Diagnosis: Recurrent nodular basal cell carcinoma Anatomic Location: Forehead Preoperative size: 1.[address] [facility] number: 7/8 Procedure: Mohs micrographic surgery with [...] plan as documented by Wil Stoddard MD ([phone]) who assisted me. In addition, I was [...] plan as documented by Wil Stoddard MD ([phone]) who assisted me. In addition, I was also present for the critical portion and immediately available for the entire procedure we performed. documented in this encounter Plan of Treatment Pending Results Name Type Priority Associated Diagnoses Date/Ti ky MOHS SURGICAL CASE Pathology and Routine 08/13/20 18 1:29 PM Cytology CDT documented as of this encounter Visit Diagnoses Diagnosis Malignant Neoplasm Of Face Basal Cell - Primary documented in this encounter Administered Medications Active Administered Medications - up to 3 most recent administrations Medication Order MAR Action Action Date Dose Rate Site [id number] Given 08/13/2018 12:44 PM CDT 4 mL [...]
--- OUTSIDE RECORDS SUMMARY | 2022-10-02 07:03 | XMS_ITS | Encounter Summary ---
:1965 Author Organization [facility] Address [address] [place] [address] Care Team Providers Name Role Phone Unavailable Primary Care Provider Unavailable Encounter Details Date Type Department Care Team Description 06/25/2018 Orders Only Department of Wil Stoddard, Malignant Neoplasm Of Dermatology in M.D. Face Basal Cell [place], [place] ILYA Henderson (Primary Dx) [address] [facility] [address] [place] [address] Social History Tobacco Use Types Packs/Day Years Used Date Smoking Tobacco: Never Assessed Sex Assigned at Date Recorded Male 07/18/2018 7:58 AM CDT documented as of this encounter Plan of Treatment Not on filedocumented as of this encounter Results Pathology Review of Outside Material (06/27/2018 10:38 AM CDT) Component Value Ref Test Analysis Performed At [facility] [facility] Range Method Time Signature Material Received A. [id number]: Skin, forehead 01/2018 [facility] ? 1 stained slide, 1 block 3:41 PM LABORATORIES - [facility] Participated in [facility] [employer] 07/01/2018 [facility] C the D.O.-Pathology 3:41 PM LABORATORIES - Interpretation Fellow [facility] Report Oswald Saucedo M.D. 07/01/2018 [facility] electronically I verify that I have examined all relevant slides/ma terials 3:41 PM LABORATORIES - signed by for the specimen(s) and rendered or confirmed the diagnosi s. [facility] 07/01/2018 [facility] 3:41 PM [facility] - [facility] Interpretation FINAL DIAGNOSIS 07/01/2018 [facility] JAILYN A. ??Skin, forehead, [id number], 06/05/2018: ??Nodular and 3:41 PM LABORATORIES - infiltrative basal cell carcinoma, involving biopsy border CDT [facility] Specimen Anatomical Collection Method Collection Time Receive d Time (Source) Location / / Volume Laterality Varies 06/27/2018 10:38 06/27/2018 AM CDT 10:38 AM CDT Narrative This result has an attachment that is no t available. Wil Stoddard M.D. LAB SURG PATH ORDERABLES Performing Organization Address City/State/ZIP Code Phon e Number [facility] LABORATORIES - [address] [place], [place] [address] [facility] documented in this encounter Visit Diagnoses Diagnosis Malignant Neoplasm Of Face Basal Cell - Primary documented in this encounter
--- OUTSIDE RECORDS SUMMARY | 2022-10-02 07:03 | XMS_ITS | Encounter Summary ---
:1965 Author Organization [facility] Address [address] [place] [address] Care Team Providers Name Role Phone Unavailable Primary Care Provider Unavailable Encounter Details Date Type Department Care Team Description 06/25/2018 Lab RST RO [facility] Wil Stoddard, Malignant Neoplasm Of [address] [facility] M.D. [place] [address] ILYA Henderson [address] Social History Tobacco Use Types Packs/Day Years [...] Component Value Ref Test Analysis Performed At [facility] Range Method Time Signature Material Received A. [id number]: Skin, forehead 01/2018 [facility] ? 1 stained slide, 1 block 3:41 PM LABORATORIES - CDT [facility] Participated in [facility] 07/01/2018 [facility] C crys D.O.-Pathology 3:41 PM LABORATORIES - Interpretation Fellow [facility] Report Oswald Saucedo M.D. 07/01/2018 [facility] electronically I verify that I have examined all relevant slides/ma terials 3:41 PM LABORATORIES - signed by for the specimen(s) and rendered or confirmed the diagnosi s. [facility] 07/01/2018 [facility] 3:41 PM LABORATORIES - CDT [facility] Interpretation FINAL DIAGNOSIS 07/01/2018 [facility] J[facility] A. ??Skin, forehead, [id number], 06/05/2018: ??Nodular and 3:41 PM LABORATORIES - infiltrative basal cell carcinoma, involving biopsy border CDT [facility] Specimen Anatomical Collection Method Collection Time Receive d Time (Source) Location / / Volume Laterality Varies 06/27/2018 10:38 06/27/2018 AM CDT 10:38 AM CDT Narrative This result has an attachment that is no t available. Wil Stoddard M.D. LAB SURG PATH ORDERABLES Performing Organization Address City/State/ZIP Code Phon e Number [facility]IES - [address] [place], [place] [address] [facility] documented in this encounter Visit Diagnoses Diagnosis Malignant Neoplasm Of Face Basal Cell documented in this encounter
--- OUTSIDE RECORDS SUMMARY | 2022-10-02 07:03 | XMS_ITS | Clinical Summary ---
:1965 Author Organization [employer] [facility] [place] [address] Care Team Providers Name Role Phone Glenn Nunes MD Primary Care Provider Allergies No known active allergies Medications No known medications Active Problems No known active problems Encounters Date Type Specialty Care Team Description 08/21/2022 Procedure Only Suraj Dial MD P rocedure (colonoscopy) 08/21/2022 Travel 08/20/2022 Telephone Suraj Dial MD Carlie ointment 08/15/2022 Telephone Suraj Dial MD PH[facility] OF [facility] from Last 3 Months Immunizations Name Administration [...] Health Maintenance Due Date Last Done Comments HIV for age 15-65 1979 BMI (ht and wt on same day) for 1982 age 18+ Hepatitis C screening for age 0604/05/1982 18-79 Lipids for age 45-75 2009 Zoster (shingles) series for age 0604/05/2014 50+ (1 of 2) Depression screening for age 12+ 03/20/2022 03/20/2021 Influenza for age 50-64 06/28/2022 08/02/2020, 08/21/2019, 08/19/2018, Additional history exists Tetanus booster 05/13/2030 05/13/2020 Colonoscopy through age 75 08/21/2032 08/21/2022, 2 Tdap Completed 05/13/2020 COVID-19 vaccine series Completed 08/14/2022, 02/27/2022, 02/24/2021, Additional history exists Procedures Procedure Name Priority Date/Time Associated Diagnosis Comme nts COLONOSCOPY 08/21/2022 1:53 PM Results f or this CDT procedure are i n the results section . from Last 3 Months Results COLONOSCOPY (08/21/2022 1:53 PM CDT) Specimen (Source) Anatomical Collection Method Collection Time Re ceived Time Location / / Volume Laterality 08/21/2022 1:53 PM CDT Narrative This result has an attachment that is no t available. Transcriptions Suraj Dial MD - 08/21/2022 3: 21 PM CDT Patient Name: Vince Haywood Procedure D ate: 08/21/2022 Gender: Male Date of : 1965 Admit Type: Outpatient Procedure: Colonoscopy Proceduralist: Suraj Dial MD , Aretha hayward (Nurse), Nesha Mireles (Nurse) Indications/Pre-Op Diagnosis: Screening for colorectal malignant neoplasm, This is the patient's first colonoscopy Medications: Fentanyl 100 micrograms IV, Midazolam 4 mg IV, The level of sedation administered was moderate Procedure Description: The patient had risks, benefits and alt ernatives explained to and gave informed consent. The patient had a sta ble cardiopulmonary status and judged an adequate candidate for consci ous sedation. The [id number] was passed through the anus and advanced to 10 cm into the ileum. The colonoscopy was performed wi thout difficulty. The patient tolerated the procedure well. The quali ty of the bowel preparation was excellent. The terminal ileum, ileoceca l valve, appendiceal orifice, and rectum were photographed. Complications: No immediate complication s. Estimated Blood Loss & Specimen: Estimated blood loss: none. Specimen co llected - None Findings: The perianal and digital rectal examina tions were normal. The terminal ileum appeared normal. The entire examined colon appeared norm al on direct and retroflexion views. Impressions/Post-Op Diagnosis: - The examined portion of the ileum was normal. - The entire examined colon is normal o n direct and retroflexion views. - No specimens collected. Recommendation: - Patient has a contact number availabl e for emergencies. The signs and symptoms of potential delayed complicat ions were discussed with the patient. Return to normal activities to [place]. Written discharge instructions were provided to the patie nt. - Resume previous diet. - Continue present medications. - Repeat colonoscopy in 10 years for sc reening purposes. Moderate Sedation: A time out was performed before the pro cedure. Moderate (conscious) sedation was administered by the endos opy nurse and supervised by the endoscopist. The following parameters w ere monitored: oxygen saturation, heart rate, blood pressure, EKG, CO2, r espiratory rate, adequacy of pulmonary ventilation and reponse to ca re. Please refer to the patient's medical r ecord flowsheets and nursing notes for moderate sedation details. Total physician intraservice time was 2 4 minutes. Suraj Dial MD 08/21/2022 3:21:36 PM This report has been signed electronical ly. Note Initiated On: 08/21/2022 1:53 PM Procedure Code(s): --- Professional --- 95231, Colonoscopy, flexible; diagnosti c, including collection of specimen(s) by brushing or washing, when performed (separate pr ocedure) Diagnosis Code(s): --- Professional --- Z12.11, Encounter for screening for mal ignant neoplasm of colon CPT copyright 2020 [employer]. All rights reserved. The codes documented in this report are preliminary and upon drug enforcement administration agent review may be revised to meet current compliance re quirements. Scope In: 2:49:52 PM Scope Withdrawal Time 0 hours 12 minutes 57 seconds Scope Out: 3:07:10 PM Suraj Dial MD PROCEDURE ORD from Last 3 Months Insurance Payer Benefit Plan / Subscriber ID Effective Dates Phone Addre ss Type Group WORKERS COMP [facility] [id number] 2013-Prese [address] [facility] [address] [place] [address] MEDICA MEDICA CHOICE [id number] 2021-Present [address] [address] [place] [address] (Work) [id number] Vince Haywood Workers Comp Self 1965 [address]Home) [place] [phone] [place], [place] (Work) [id number] Vince Haywood Workers Comp Self 1965 [id number] [facility] (Home) [place] [address] 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
--- NOTE | 2022-10-02 08:00 | CRLHL7_ITS ---
For Patients: As a result of the Century Cures Act, medical imaging exams and procedure reports are released immediately into your electronic medical record. You may view this report before your referring provider. If you have questions, please contact your health care provider. Indication: RLQ PAIN. POSSIBLE MASS OR Crohn`s Technique: Postcontrast CT abdomen and pelvis. 95 cc Isovue 370 intravenous contrast. Oral water. Please note that all CT scans at this facility use dose modulation, iterative reconstruction, and/or weight-based dosing when appropriate to reduce radiation dose to as low as reasonably achievable. Comparison: None Findings: Minimal dependent atelectasis is located within both lung bases. Normal liver. Gallbladder incompletely distended. No calcified gallstones or biliary obstruction. No stigmata of cirrhosis. No ascites. Normal pancreas and spleen. Adrenal glands and kidneys are normal. No adenopathy. Bladder normal. Prostate mildly heterogeneous. Small incidental umbilical hernia containing fat is present measuring 2.2 cm. Excess stool is present within the rectum. No mechanical bowel obstruction. No inflammatory changes. The appendix is normal. Excess stool is present throughout the remainder of the colon including the cecum. Degenerative disc disease at L4-5 is present. Impression: Excess stool in the colon particularly within the cecum and rectum compatible with fecal retention/constipation. No evidence of inflammatory bowel disease or appendicitis. Please note that all CT scans at this facility use dose modulation, iterative reconstruction, and/or weight-based dosing when appropriate to reduce radiation dose to as low as reasonably achievable. Dictated by Alfa Sherman MD @ 10/03/2022 3:29:40 PM (Electronically Signed)
== END 2022-10-02 07:01 | disposition home or self-care (01) ==
LOC: CT 07:01
PROVIDERS: PCP Family Medicine; Visit Provider Family Medicine
DX: R10.31 Right lower quadrant pain (principal)
CPT/HCPCS: 74177; Q9967

== ENCOUNTER 2023-06-06 10:18 | Day surgery (SDC) | payer OTHER, SELFPAY ==
[2023-06-06] VITALS (7 sets, daily range): BP systolic 100–115; BP diastolic 66–80; PULSE 53–79; RESP 16–18; TEMP 36.6; O2SAT 96–99; BMI 25.9
[2023-06-06] MEDS: CELECOXIB 200 MG CAPSULE PO (07:30)
[2023-06-06] MEDS: ACETAMINOPHEN 500 MG TABLET 1000 MG PO (07:30)
[2023-06-06] MEDS: OXYCODONE (CR) 10 MG TAB.ER.12H PO (07:30)
[2023-06-06] MEDS: LACTATED RINGERS 1000 ML 1,000 ML 100 ML IV (07:30)
[2023-06-06] MEDS: SODIUM CHLORIDE 0.9 % (FLUSH) 10 ML SYRINGE IVF (11:15)
[2023-06-06] MEDS: MIDAZOLAM HCL 1 MG/ML inj IVP (12:30)
[2023-06-06] MEDS: fentaNYL 100 MCG/2 ML inj IVP (12:30)
--- NOTE | 2023-06-06 12:30 | CRLHL7_ITS ---
For Patients: As a result of the Cures Act, medical imaging exams and procedure reports are released immediately into your electronic medical record. You may view this report before your referring provider. If you have questions, please contact your health care provider. INDICATION: Left wrist ORIF TECHNIQUE: Two intraoperative fluoroscopic images Comparison x-ray 06/05/23 FINDINGS: Plate and screw fixation of left distal radial metaphyseal fracture which appears grossly aligned. Two images 54.7 seconds fluoro time. Dictated by Mirian Farah MD @ 06/07/2023 7:32:57 AM (Electronically Signed)
--- NOTE | 2023-06-06 12:39 | SUR.PREOP ---
TIME?OUT:?1230 PT/RN/MDA?VERIFICATION?OF?SURGICAL?SITE,?PROCEDURE,?AND?CONSENT OBTAINED?PRIOR?TO?INVASIVE?PROCEDURE. left wrist
--- NOTE | 2023-06-06 12:41 | W.PM.NB ---
Nerve Block Nerve Block Time Seen by Provider: 12:34 Date Seen: 06/06/23 Type of block requested by surgeon for post-operative analgesia: axillary Side: left Time out performed: Yes Verification of patient name: Yes Verification of date of : Yes Site marking: site marked Name of person performing procedure: Abhay Continuous monitoring Was continuous monitoring of O2 sat, B/P, machine slat basket maker, recorded every 15 minutes?: Yes Procedure Checklist: sterile prep, needles and gloves Ultrasound guided. Images saved: Yes Medications given in 5ml increments after negative aspiration: Ropivicaine %: 0.5 mL: 30 Needle gauge: 22 Patient tolerated procedure well: Yes Additional comments: Needle noted adjacent to nerve Block Charges Block Charge (with Pro Fee): Brachial Plexus Use of Ultrasound Machine for Block: Yes- US Guidance/pain block
--- NOTE | 2023-06-06 12:42 | W.ANESCHARGE ---
Anesthesia Charges Start Date/Time Anesthesia Start Date: 06/06/23 Anesthesia Start Time: 12:56 Stop Date/Time Anesthesia Stop Date: 06/06/23 Anesthesia Stop Time: 15:11
[2023-06-06] MEDS: CEFAZOLIN 2 GM INJ IVP (13:05)
--- NOTE | 2023-06-06 15:11 | PM.ORPRC ---
Procedure Note Date of procedure: 06/06/23 Procedure: PREOPERATIVE DIAGNOSIS: Angulated 3+ part intra-articular left upper extremity distal radius fracture POSTOPERATIVE DIAGNOSIS: Angulated 3+ part intra-articular left upper extremity distal radius fracture NAME OF OPERATION: Open reduction internal fixation SURGEON: Roberto Sullivan MD SENIOR ADVISOR: JOE Hawkins ANESTHESIA: Supraclavicular block plus monitored anesthesia care ESTIMATED BLOOD LOSS: 0 mL COMPLICATIONS: None SPECIMENS: None DRAINS: None PREOPERATIVE ANTIBIOTICS: Ancef 2 grams INDICATIONS: The patient is a 58-year-old who fell landing on their upper extremity sustaining the above injury. Given the amount of angulation, reduction and plate fixation were recommended. The risks, benefits and expected outcomes were discussed in detail. These included but were not limited to: Infection, bleeding, injury to blood vessel or nerve, venous thromboembolism. All questions were answered to their satisfaction. Use of an specimen preparation assistant was necessary throughout the case for patient positioning and safety, maintenance of the reduction, surgical site dressing and splint application. PROCEDURE: A supraclavicular block was placed by Anesthesia. The patient was placed supine on the operating room table. IV sedation was administered. The reduction was obtained with longitudinal traction and volar force on the distal fragment, held by the specimen preparation assistant. The image intensifier was used to confirm an excellent reduction. The extremity was prepped and draped in the usual sterile fashion. The limb was exsanguinated with the Suraj bandage. The pneumatic tourniquet was inflated to 250 mm of mercury. A longitudinal incision was made over the flexor carpi radialis. Subcutaneous dissection was taken sharply through the FCR sheath. The FCR was retracted radially. Sharp dissection was carried through the floor of the FCR sheath. The flexor pollicis longus was retracted ulnarly. Sharp dissection was carried through the radial border of the pronator quadratus which was elevated ulnarly, exposing the fracture site. There was significant deformity of the bone, from his previous fracture as a teenager. Additionally, the muscle bellies of the flexor digitorum muscles was scarred to the bone. They were bluntly elevated off the bone with the joker and retracted ulnarly as well. The specimen preparation assistant held retractors to expose the fracture. The volar cortex of the fracture is anatomically aligned. We placed a Synthes wide, 3 hole volar locking plate over the volar cortex. It was provisionally held with a BB tack x 2, while the specimen preparation assistant held the reduction. Its placement was confirmed with the image intensifier. We placed a cortical screw in the slot. Because of the deformity, the distal aspect of the plate would not lie flush on the bone. We then filled the distal screw holes with smooth locking pegs using the image intensifier to confirm their extra-articular placement. Finally, 2 locking screws were placed in the shaft fragment. This construct was imaged in multiple views and was felt to be well placed with an anatomic reduction and well placed implants. The wound was irrigated normal saline. Subcutaneous tissues were reapproximated a 2-0 Vicryl, skin with a running 3-0 Monocryl in a subcuticular fashion. Glue was used to seal the skin. A dry dressing and short-arm dorsal volar splint was applied. These steps were all completed by the specimen preparation assistant. The tourniquet was released, sponge and needle counts were correct x2. The patient tolerated the procedure well, there were no apparent complications. They were taken to the postanesthesia care unit in satisfactory condition. PLAN: The patient will be discharged home. They will work on elevation of the hand and active range of motion of the fingers. They will follow up next week in the office for a wound check with a PA, oblique, lateral and fossa lateral view of the wrist out of the splint prior to being seen in preparation for early active motion with Orthoplast splint protection.
--- NOTE | 2023-06-06 15:13 | W.ANESCHARGE ---
Anesthesia Charges Start Date/Time Anesthesia Start Date: 06/06/23 Anesthesia Start Time: 12:56 Stop Date/Time Anesthesia Stop Date: 06/06/23 Anesthesia Stop Time: 15:11
== END 2023-06-06 16:34 | disposition home or self-care (01) ==
LOC: OR 10:19
PROVIDERS: PCP Family Medicine; Visit Provider Orthopaedic Surgery
PROC: (CPT 25575; principal; 2023-06-06 12:30)
DX: S52.572A Other intraarticular fracture of lower end of left radius, initial encounter for closed fracture (principal); G89.18 Other acute postprocedural pain
CPT/HCPCS: 25609; 1830; 64415; 73110; 76000; 76942; A4580; A9270; C1713; J0690; J2250; J2405; J2704; J3010; J7120

== ENCOUNTER 2023-08-20 09:30 | Outpatient (RCR) | payer OTHER, SELFPAY | END 2023-08-20 10:44 | disposition home or self-care (01) | PROVIDERS: PCP Family Medicine; Visit Provider Orthopaedic Surgery | DX: Z98.890 Other specified postprocedural states (principal); Z51.89 Encounter for other specified aftercare | CPT/HCPCS: 97110; 97140; 97165; 97530; L3906; X5282 ==

== ENCOUNTER 2024-02-18 09:42 | Outpatient (CLI) | payer BC, SELFPAY ==
--- OUTSIDE RECORDS SUMMARY | 2024-02-18 09:45 | XMS_ITS | Continuity of Care Document ---
Author Name Unknown Organization [facility] Address [address] [place] [address] Phone Care Team Providers Care Radiotelephone Technical Operator Name Role Phone Golden CHOUDHURY, PhD, Cristobal Clements Unavai lable Allergies, Adverse Reactions, Alerts Substance Reaction Status Criticality No Known Allergies Active No Inform ation Medications Medication Instructions Dosage Effective Dates (start - stop) Status Comments No Drug Therapy Prescribed Procedures Procedure Date Office/Outpatient Visit,New, Mod 2018 X-Ray Exam Lwr Spine, Min 4 Views Office/Outpatient Visit,New, Mod 2018 X-Ray Exam Lwr Spine, Min 4 Views Advance Directives Directive Yes / No Effective Date File Name No Information Encounters Encounter Description Practice Location Reason(s) For Visit Diagnoses Date Provider Providers Copied on Encounter Office/Outpat ient Visit,New, Mod [facility], [address], [place], [place], [id number], [place] tel:[phone] [facility] Other intervertebral disc degeneration, lumbar region [address] [facility], [address] [facility] [address], [place], [address], [place]. tel:[phone] Referring Provider: Cristobal Franks, [facility] [address], [place], [address]. tel:[phone] Family History Family Member Type Diagnosis Age At Onset No Information Payers Payer name Insurance type Covered libertarian ID Maicol gallardo(s) [facility] [id number] [id number] [id number] [facility] [id number] Social History Type Description Quantity Date Captured Comments Alcohol Use Details Unknown Caffeine Use Details Unknown Tobacco Use Status Never smoked tobacco 2018 Smoking Status Never smoker Non-Smoking Tobacco Use Details : No Details Available : No Details Available Sex Male Vital Signs Date / Time: Height Weight BMI Pulse Rate Blood Pressure Temperature Respiratory Rate Body Surface Area Head Circumference Head Circ. Percentile Wt./Gary. Percentile BMI percentile Pulse Ox Inhaled Ox 9:42 AM 73.00 in 97.522 kg (215.00 lbs) 28.3 7 kg/m eter (2) 79 /min 118/75 mm[Hg] Chief Complaint And Reason For Visit No Information Reason For Referral Reason For Referral No Information History Of Present Illness Encounter Date Complaint History Of Prese nt Illness No Information Functional Status Date Functional Assessmen t No Information Medications Administered Medication Instructions Dosage Effective Dates (start - stop) Status Comments No Drug Therapy Prescribed Instructions Date Instruction Additional Infor mation No Information Assessments Type Assessment Date No Information Patient Care Teams Name Effective Dates (start - stop) Status Members No Information
--- OUTSIDE RECORDS SUMMARY | 2024-02-18 09:45 | XMS_ITS | Referral Summary ---
Author Name Unknown Organization [facility] Address [address] [place] [address] Care Team Providers Care Sr. Pricing Analyst Name Role Phone Unavailable Primary Care Provider Unavailabl e Source Comments Patient records contain information from all sites at [facility]. For routine questions regarding patient records, call [phone] during business hours, M-F 8:00 AM - 5:00 PM Central Time. Record requests for emergency care only can be directed to [phone] at any time.[facility] Allergies No known active allergies Medications Medication Sig Dispensed Refills Start Date End Date Status fluorouraciL (EFUDEX) 5 % creamIndications:Ker atosis Actinic Apply 1 application topically 2 (two) times a day. Apply to scalp vertex twice daily for 2-3 weeks. 40 g 12/17/2022 Active sildenafiL (VIAGRA) 100 mg tablet Take 100 mg by mouth as needed for erectile dysfunction. 03/17/2023 Active Hospital, Clinic, or Other Facility Administered Medication Ordered Dose Route Frequency Start Date End Date Status lidocaine-EPINEPHrine 1%-1:200,000 injection 2-50 mL (XYLOCAINE W/EPI) 2 - 50 mL inj As needed 08/13/2018 Acti ve jcfsnyitovm-hcptkhked-VGPYHRD rine 0.25%-1%-1:200,000 injection 2-25 mL 2 - 25 mL inj As needed 08/13/2018 Active Active Problems No known active problems Immunizations Name Administration Dates Next Due SARS-COV-2 (COVID-19) - MODERNA(Discontinued) ,01/27/2021 Social History Tobacco Use Types Packs/Day Years Used Date Smoking Tobacco: Never Passive Smoke Exposure: Never Smokeless Tobacco: Never Alcohol Use Standard Drinks/Week Comments Yes 2 (1 standard drink = 0.6 oz pur e alcohol) Humiliation, Afraid, Rape, and Kick questionnair e Answer Date Recorded Within the last year, have y ou been afraid of your partner or ex-partner? No 12/13/2022 Within the last year, have y ou been humiliated or emotionally abused in other ways by your partner or ex-partner? No Within the last year, have y ou been kicked, hit, slapped, or otherwise physically hurt by your partner or ex-partner? No 12/13/2022 Within the last year, have y ou been raped or forced to have any kind of sexual activity by your partner or ex-partner? No 12/13/2022 Social Connection and Isolation Panel [NHANES] A nswer Date Recorded In a typical week, how many times do you talk on the phone with family, friends, or neighbors? Three times a week 12/13/19 How often do you get togethe r with friends or relatives? Three times a week 12/13/2022 How often do you attend chur ch or religion services? 1 to 4 times per year 12/13/2022 Do you belong to any clubs o r organizations such as gnosticism groups, unions, fraternal or athletic groups, or school groups? Yes 12/13/2022 How often do you attend meet ings of the clubs or organizations you belong to? 1 to 4 times per year 12/13/2022 Are you , , di vorced, , never , or living with a partner? 12/13/2022 AUDIT-C Answer Date Recorded Q1: How often do you have a drink containing alc ohol? 2-4 times a month 12/13/2022 Q2: How many drinks containi ng alcohol do you have on a typical day when you are drinking? 1 or 2 12/13/2022 Q3: How often do you have si x or more drinks on one occasion? Never 12/13/2022 Overall Financial Resource Strain (CARDIA) Answe r Date Recorded How hard is it for you to pa y for the very basics like food, housing, medical care, and heating? Not hard at all 12/13/2022 [employer] - Occupational Stress Questionnaire Answer Date Recorded Do you feel stress - tense, restless, nervous, or anxious, or unable to sleep at night because your mind is troubled all the time - these days? Not at all 12/13/2022 Exercise Vital Sign Answer Date Recorde d On average, how many days pe r week do you engage in moderate to strenuous exercise (like a brisk walk)? 4 days 12/13/2022 On average, how many minutes do you engage in exercise at this level? 60 min 12/13/2022 Hunger Vital Sign Answer Date Recorded Within the past 12 months, y ou worried that your food would run out before you got the money to buy more. Never true 12/13/19 Within the past 12 months, t he food you bought just didn't last and you didn't have money to get more. Never true 12/13/2022 PRAPARE - Transportation Answer Date Re corded In the past 12 months, has l ack of transportation kept you from medical appointments or from getting medications? No 11/28 In the past 12 months, has l ack of transportation kept you from meetings, work, or from getting things needed for daily living? No 12/13/2022 Housing Stability Vital Sign Answer Tay e Recorded In the last 12 months, was t here a time when you were not able to pay the mortgage or rent on time? No 12/13/2022 In the last 12 months, how many places have you lived? 1 12/13/2022 In the last 12 months, was t here a time when you did not have a steady place to sleep or slept in a retirement (including now)? No 12/13/2022 Nutrition Answer Date Recorded Nutrition: EVOO Fat Source Yes 12/13 On average, how many serving s of fruits and vegetables do you eat per day (serving size is equal to 1 cup or approximately the size of a tennis ball)? 2-3 12/13/2022 Dental Answer Date Recorded Dental: Regular Dentist Yes 12/13/19 Employment Answer Date Recorded Employment status Retired 12/13/2022 Education Answer Date Recorded What is the highest level of school you have completed or the highest degree you have received? Bachelor's degree (e.g., BA, AB, BS) 12/13/2022 Sex and Gender Information Value Date Recorded Sex Assigned at Male 07/18/2018 7:58 AM CDT Gender Identity Male 07/18/2018 7:58 AM CDT Sexual Orientation Straight 07/18/2018 7: 58 AM CDT Last Filed Vital Signs Vital Sign Reading Time Taken Comments Blood Pressure 120/77 08/13/2018 9:32 AM CDT Pulse 75 08/13/2018 9:32 AM CDT Temperature - - Respiratory Rate - - Oxygen Saturation - - Inhaled Oxygen Concentration - - Weight - - Height - - Body Mass Index - - Plan of Treatment Not on file Medical Devices Implanted Type Area Rn Ambulatory Device Identifier Shelf Expiration Date Model / Serial / Lot Hardware E.G. Pins/Screws/R ods Hardware e.g. pins/screws/ rods Left: Wrist
--- OUTSIDE RECORDS SUMMARY | 2024-02-18 09:45 | XMS_ITS | Clinical Summary ---
Author Name Unknown Organization [facility] Address [address] [place] [address] Care Team Providers Care Non Licensed Nuclear Plant Operator Name Role Phone Unavailable Primary Care Provider Unavailabl e Source Comments Patient records contain information from all sites at [facility]. For routine questions regarding patient records, call [phone] during business hours, M-F 8:00 AM - 5:00 PM Central Time. Record requests for emergency care only can be directed to [phone] at any time.[facility] Allergies No known active allergies Medications Medication [...] mL inj As needed 08/13/2018 Acti ve eucwktljgsw-nahnaitdc-WPDBEJB rine 0.25%-1%-1:200,000 injection 2-25 mL 2 - 25 mL inj As needed 08/13/2018 Active Active Problems No known active problems Immunizations Name Administration Dates Next Due SARS-COV-2 (COVID-19) - MODERNA(Discontinued) ,01/27/2021 Family History Medical History Relation Name Comments Depression Brother William Haywood Melanoma Brother William Haywood Skin cancer Brother William Haywood Hypertension Mother Jimena Haywood Skin cancer Sister 1 Kala Fuentes Relation Name Status Comments Brother William Haywood Mother Jimena Haywood Sister 1 Kala Fuentes Sister 2 Kenzie Kusum Social History Tobacco Use Types Packs/Day Years [...] often do you attend chur ch or sabianism services? 1 to 4 times per year 12/13/2022 Do you belong to any clubs o r organizations such as congregational groups, unions, fraternal or athletic groups, or [...] and heating? Not hard at all 12/13/2022 [facility] [place] of Occupat ional Health - Occupational Stress [...] money to buy more. Never true 12/13/19 23 Within the past 12 months, t he [...] place to sleep or slept in a prison (including now)? No 12/13/2022 Nutrition Answer Date [...] Screening 1965 FIT 1965 Fasting Glucose for Diabetes Screening 1964 HIV Screening 1964 Hepatitis C Screening 1964 Lipid (Cholesterol) Screening 1964 Hepatitis B Vaccines (3 of 3 - 19+ 3-dose series) 08/31/1994 04/04/1994, 02/28/1994 Zoster Vaccines (1 of 2) 2014 Depression Screening (Annual PHQ-2) 10/28/2023 DTaP,Tdap,and Td Vaccines (2 - Td or Tdap) 05/13/2030 05/13/2020 COVID-19 Vaccine Completed 08/05/2023, , 02/27/2022, Additional history exists Influenza Vaccine Completed 08/05/2023, , 07/27/2021, Additional history exists Pneumococcal vaccine (0-64 years) Aged Out No longer eligible based on patient's age to complete this topic Medical Devices Implanted Type Area Front Tender Device Identifier Shelf Expiration Date Model / Serial / Lot Hardware E.G. Pins/Screws/R ods Hardware e.g. pins/screws/ rods Left: Wrist
--- OUTSIDE RECORDS SUMMARY | 2024-02-18 09:45 | XMS_ITS ---
Author Name Unknown Organization [facility] Address [address] [place] [address] Care Team Providers Care Food Consultant Name Role Phone Unavailable Unavailable Unavailable Surgery Details Not on file Complications Check Surgery Details section. Procedure Estimated Blood Loss Check Surgery Details section. Procedure Findings Check Surgery Details section. Procedure Specimens Taken Check Surgery Details section.
--- OUTSIDE RECORDS SUMMARY | 2024-02-18 09:45 | XMS_ITS | Clinical Summary ---
Author Name Unknown Organization [facility] Address [place], [place] [address] Care Team Providers Care Fuels Engineer Name Role Phone Glenn Nunes MD Primary Care Provider [phone] Allergies No known active allergies Medications No known medications Active Problems No known active problems Immunizations Name Administration Dates Next Due COVID-19 vaccine (Moderna 100mcg/0.5mL) PAVITHRA HONG 02/24/2021,01/27/2021 Hepatitis A (Adult) 01/10/2011 Hepatitis B, Unspecified 04/04/1994,02/28/1994 Influenza Virus, Unspecified 09/24/1994 Influenza, IIV3 (Age 6-35 mos) 08/10/2011 Influenza, IIV3 (Age >=3 years) 08/06/2014 Influenza, IIV4 (=>6mos) MDV 08/02/2020, 08/21/2019,08/19/2018,2016,08/13/2016,08/05/2015 Tdap 05/13/2020 Social History Tobacco Use Types Packs/Day Years Used Date Smoking Tobacco: Never Smokeless Tobacco: Never Tobacco Cessation:Counseling Given: Yes Alcohol Use Standard Drinks/Week Comments Yes 0 (1 standard drink = 0.6 oz pur e alcohol) 2 beers on weekends PHQ-2 Answer Date Recorded PHQ-2 TOTAL SCORE 0 03/20/2021 Social Connections Answer Date Recorded Frequency of Communication with Friends and Fami ly Not on file 10/28/2021 Financial Resource Strain Answer Date R ecorded Difficulty of Paying Living Expenses Not on file 10/28/2021 Difficulty of Paying Living Expenses Not on file 10/28/2021 Sex and Gender Information Value Date Recorded Sex Assigned at Not on file Gender Identity Not on file Sexual Orientation Not on file Obstetrics History Last Filed Vital Signs Vital Sign Reading Time Taken Comments Blood Pressure 95/61 06/18/2022 2:57 PM CDT Pulse 92 06/18/2022 2:57 PM CDT Temperature 36.9 ??C (98.4 ??F) 06/18/2022 2:57 PM CD T Respiratory Rate 16 03/14/2021 8:39 AM CDT Oxygen Saturation 97% 05/02/2022 1:44 PM CDT Inhaled Oxygen Concentration - - Weight 88.9 kg (196 lb) 06/18/2022 2:57 PM CDT Height - - Body Mass Index - - Plan of Treatment Health Maintenance Due Date Last Done Comments HIV for age 15-65 1979 BMI (ht and wt on same day) for age 18+ 1982 Hepatitis C screening for age 18-79 1982 Lipids for age 45-75 2009 Zoster (shingles) series for age 50+ (1 of 2) 2014 Depression screening for age 12+ 03/20/2022 03/20/2021 COVID-19 vaccine series ( season) 2023 08/14/2022, 02/27/2022, 02/24/2021, Additional history exists Influenza for age 50-64 06/28/2024 08/02/20 20, 08/21/2019, 08/19/2018, Additional history exists Tetanus booster 05/13/2030 05/13/2020 Colonoscopy through age 75 08/21/2032 08/21/2022, Tdap Completed 05/13/2020 Pneumococcal series for age 6-64 Aged Out No longer eligible based on patient's age to complete this topic Procedures Procedure Name Priority Date/Time Associated Diagnosis Comments COLONOSCOPY 08/21/2022 1:53 PM CDT from Last 3 Months or Most Recently Relevant to Health Maintenance Results * COLONOSCOPY (08/21/2022 1:53 PM CDT) 08/21/2022 1:53 PM CDT Narrative Transcriptions Suraj Dial MD - 08/21/2022 3:21 PM CDT Patient Name: Vince Haywood Procedure Date: 08/21/2022 Gender: Male Date of : 1965 Admit Type: Outpatient Procedure: Colonoscopy Proceduralist: Suraj Dial MD , Aretha Jimenez (Nurse), Nesha Mireles (Nurse) Indications/Pre-Op Diagnosis: Screening for colorectal malignant neoplasm, This is the patient's first colonoscopy Medications: Fentanyl 100 micrograms IV, Midazolam 4 mgIV, The level of sedation administered wasmoderate Procedure Description: The patient had risks, benefits and alternatives explained to andgave informed consent. The patient had a stable cardiopulmonary status and judged an adequate candidate for conscious sedation. The [id number] was passed through the anus and advanced to 10 cm intothe ileum. The colonoscopy was performed without difficulty. The patient tolerated the procedure well. The quality of the bowel preparationwas excellent. The terminal ileum, ileocecal valve, appendiceal orifice,and rectum were photographed. Complications: No immediate complications. Estimated Blood Loss & Specimen: Estimated blood loss: none. Specimen collected - None Findings: The perianal and digital rectal examinations were normal. The terminal ileum appeared normal. The entire examined colon appeared normal on direct and retroflexion views. Impressions/Post-Op Diagnosis: - The examined portion of the ileum was normal. - The entire examined colon is normal on direct and retroflexionviews. - No specimens collected. Recommendation: - Patient has a contact number available for emergencies. The signsand symptoms of potential delayed complications were discussed with the patient. Return to normal activities tomorrow. Written discharge instructions were provided to the patient. - Resume previous diet. - Continue present medications. - Repeat colonoscopy in 10 years for screening purposes. Moderate Sedation: A time out was performed before the procedure. Moderate (conscious) sedation was administered by the endoscopy nurse and supervised bythe endoscopist. The following parameters were monitored: oxygensaturation, heart rate, blood pressure, EKG, CO2, respiratory rate, adequacy of pulmonary ventilation and reponse to care. Please refer to the patient's medical record flowsheets and nursing notes for moderate sedation details. Total physician intraservice time was 24 minutes. Suraj Dial MD 08/21/2022 3:21:36 PM This report has been signed electronically. Note Initiated On: 08/21/2022 1:53 PM Procedure Code(s): --- Professional --- 39334, Colonoscopy, flexible; diagnostic, including collection of specimen(s) bybrushing or washing, when performed (separateprocedure) Diagnosis Code(s): --- Professional --- Z12.11, Encounter for screening formalignant neoplasm of colon CPT copyright 2020 [employer]. All rights reserved. The codes documented in this report are preliminary and upon remote inpatient coder reviewmay be revised to meet current compliance requirements. Scope In: 2:49:52 PM Scope Withdrawal Time 0 hours 12 minutes 57 seconds Scope Out: 3:07:10 PM Suraj Dial MD PROCEDURE ORD from Last 3 Months or Most Recently Relevant to Health Maintenance Care Teams Fuels Engineer Relationship Specialty Start Date End Date Glenn Nunes MD PCP - General Family Practice 08/21/22
== END 2024-02-18 09:43 | disposition home or self-care (01) ==
PROVIDERS: PCP Family Medicine; Visit Provider Family Medicine
DX: N52.9 Male erectile dysfunction, unspecified (principal); Z12.5 Encounter for screening for malignant neoplasm of prostate; Z13.228 Encounter for screening for other metabolic disorders; Z13.220 Encounter for screening for lipoid disorders
CPT/HCPCS: 80048; 80061; G0103

== ENCOUNTER 2024-03-26 19:39 | Emergency (ER) | payer BC, SELFPAY ==
[2024-03-26 19:47] VITALS: BP 114/79; PULSE 103; RESP 20; TEMP 36.4; O2SAT 100; BMI 25.1
[2024-03-26 20:19] LABS: Troponin, Point-of-Care* 0.01 ng/ml (0.01-0.04)
[2024-03-26] MEDS: 0.9 % SODIUM CHLORIDE 1000 ml 1,000 ML IV (20:29)
[2024-03-26 20:35] LABS: Basophils Absolute Auto 0.03 K/uL (0.00-0.30); Basophils Percent Auto 0.4 % (0.0-3.0); Eosinophils Absolute Auto 0.01 K/uL (0.00-0.50); Eosinophils Percent Auto 0.1 % (0.0-7.0); Hematocrit 39.7 % (37.0-53.0); Hemoglobin* 13.2 gm/dL (13.5-17.5); Immature Granulocytes Abs Auto 0.02 K/uL (0.00-0.30); Immature Granulocytes Pct Auto 0.2 %; Lymphocytes Percent Auto 19.4 % (20-44); Mean Corpuscular HGB Conc 33 gm/dL (32-36); Mean Corpuscular Hemoglobin 31 pg (26-34); Mean Corpuscular Volume 93 fL (80-100); Monocytes Percent Auto 4.5 % (0.0-11.0); Neutrophils Percent Auto 75.4 % (42.0-72.0); Platelet Count* 251 K/uL (140-440); Red Blood Count 4.28 m/uL (4.30-5.90); White Blood Count* 8.26 K/uL (4.50-11.00)
[2024-03-26 20:38] LABS: Slide Review Reflex No
--- OUTSIDE RECORDS SUMMARY | 2024-03-26 20:39 | XMS_ITS | Clinical Summary ---
Author Organization [facility] Address [place], [place] [address] Care Team Providers Care Benefits Consultant Name Role Phone Glenn Nunes MD Primary Care Provider [phone] Allergies No known active allergies Medications No [...] an adequate candidate for conscious sedation. The [id number] was passed through the anus and advanced [...] 1:53 PM Procedure Code(s): --- Professional --- 77465, Colonoscopy, flexible; diagnostic, including collection of specimen(s) bybrushing or washing, when performed (separateprocedure) Diagnosis Code(s): --- Professional --- Z12.11, Encounter for screening formalignant neoplasm of colon CPT copyright 2020 [employer]. All rights reserved. The codes documented in this report are preliminary and upon manager meat reviewmay be revised to meet current compliance requirements. Scope In: 2:49:52 PM Scope Withdrawal Time 0 hours 12 minutes 57 seconds Scope Out: 3:07:10 PM Suraj Dial MD PROCEDURE ORD from Last 3 Months or Most Recently Relevant to Health Maintenance Care Teams Benefits Consultant Relationship Specialty Start Date End Date Glenn Nunes MD PCP - General Family Practice 08/21/22
--- OUTSIDE RECORDS SUMMARY | 2024-03-26 20:39 | XMS_ITS ---
Author Organization [facility] Address [address] [place] [address] Care Team Providers Care Drop Man Name Role Phone Unavailable Unavailable Unavailable Surgery Details Not on file Complications Check Surgery Details section. Procedure Estimated Blood Loss Check Surgery Details section. Procedure Findings Check Surgery Details section. Procedure Specimens Taken Check Surgery Details section.
--- OUTSIDE RECORDS SUMMARY | 2024-03-26 20:39 | XMS_ITS | Clinical Summary ---
Author Organization [facility] Address [address] [place] [address] Care Team Providers Care Business Banking Representative Name Role Phone Unavailable Primary Care Provider Unavailabl e Source Comments Patient records contain information from all sites at [facility]. For routine questions regarding patient records, call [phone] during business hours, M-F 8:00 AM - 5:00 PM Central Time. Record requests for emergency care only can be directed to [phone] at any time.[facility] Allergies No known active allergies Medications [...] mL inj As needed 08/13/2018 Acti ve dwjnzrtijab-cnvbvhcnf-IRGMXBG rine 0.25%-1%-1:200,000 injection 2-25 mL 2 - 25 mL inj As needed 08/13/2018 Active Active Problems No known active problems Immunizations Name Administration Dates Next Due SARS-COV-2 (COVID-19) - MODERNA(Discontinued) ,01/27/2021 Family History Medical History Relation Name Comments Depression Brother William Haywood Melanoma Brother Williamfranklin Haywood Skin cancer Brother William Haywood Hypertension Mother Jimena Haywood Skin cancer Sister 1 Kala Fuentes Relation Name Status Comments Brothestrella Haywood Mother Jimena Haywood Sister 1 Kala [...] often do you attend chur ch or yazidism services? 1 to 4 times per year 12/13/2022 Do you belong to any clubs o r organizations such as amish groups, unions, fraternal or athletic groups, or [...] and heating? Not hard at all 12/13/2022 [facility] Occupat ional Health - Occupational Stress [...] place to sleep or slept in a fdc (including now)? No 12/13/2022 Nutrition Answer Date [...] Mass Index - - Plan of Treatment Upcoming Encounters Date Type Department Care Team (Late st Contact Info) Description 03/30/2024 2:00 PM CDT Comprehensive Visit Department of Dermatology in [place], [place] [address] [place] [address] Health Maintenance Due Date Last Done Comments CT Colonography 1965 Cologuard 1965 FIT 1965 Fasting Glucose for Diabetes Screening 1965 HIV Screening 1964 Hepatitis C Screening 1964 Lipid (Cholesterol) Screening 1964 Hepatitis B Vaccines (3 of 3 - 19+ 3-dose series) 08/31/1994 04/04/1994, 02/28/1994 Zoster Vaccines (1 of 2) 2014 Depression Screening (Annual PHQ-2) 10/28/2023 DTaP,Tdap,and Td Vaccines (2 - Td or Tdap) 05/13/2030 05/13/2020 Colonoscopy 08/21/2032 08/21/2022 Colorectal Cancer Screening 08/21/2032 COVID-19 Vaccine Completed 08/05/2023, , 02/27/2022, Additional history exists Influenza Vaccine Completed 08/05/2023, , 07/27/2021, Additional history exists Pneumococcal vaccine (0-64 years) Aged Out No longer eligible based on patient's age to complete this topic Medical Devices Implanted Type Area Pet Technologist Device Identifier Shelf Expiration Date Model / Serial / Lot Hardware E.G. Pins/Screws/R ods Hardware e.g. pins/screws/ rods Left: Wrist
--- OUTSIDE RECORDS SUMMARY | 2024-03-26 20:39 | XMS_ITS | Continuity of Care Document ---
Author Organization [facility] Address [address] [place] [address] Phone Care Team Providers Care Automatic Beam Warper Tender Name Role Phone Golden CHOUDHURY, PhD, Cristobal [...] Visit,New, Mod [facility], [address], [place], [place], [id number], [place] tel:[phone] [facility] Other intervertebral disc degeneration, lumbar region 9 Golden Jain. [facility] [place], [address] [facility] [address], [address], [place]. tel:[phone] Referring Provider: Cristobal Franks, [facility] [address], [place], [address]. tel:[phone] Family History Family Member Type Diagnosis Age At Onset No Information Payers Payer name Insurance type Covered green party ID Maicol gallardo(s) [facility] Insurance [id number] [facility] [place] [id number] [facility] [id number] [facility] [id number] Social History Type Description Quantity Date Captured [...]
--- OUTSIDE RECORDS SUMMARY | 2024-03-26 20:39 | XMS_ITS | Referral Summary ---
Author Organization [facility] Address [address] [place] [address] Care Team Providers Care Internet Marketing Analyst Name Role Phone Unavailable Primary Care Provider Unavailabl e Source Comments Patient records contain information from all sites at [facility]. For routine questions regarding patient records, call [phone] during business hours, M-F 8:00 AM - 5:00 PM Central Time. Record requests for emergency care only can be directed to [phone] at any time.[facility] Allergies No known active allergies Medications Medication [...] mL inj As needed 08/13/2018 Acti ve mkchqvahapk-xbyijczht-DYMUNWZ rine 0.25%-1%-1:200,000 injection 2-25 mL 2 - [...] 12/13/2022 How often do you attend chur or anglican services? 1 to 4 times per year 12/13/2022 Do you belong to any clubs o r organizations such as yarsanism groups, unions, fraternal or athletic groups, or [...] and heating? Not hard at all 12/13/2022 [facility]at [facility] - Occupational Stress [...] place to sleep or slept in a halfway (including now)? No 12/13/2022 Nutrition Answer Date [...] CDT Comprehensive Visit Department of Dermatology in [place], [place] [address] [place] [address] Medical Devices Implanted Type Area [employer] Agriculture Teacher Device Identifier Shelf Expiration Date Model / Serial / Lot Hardware E.G. Pins/Screws/R ods Hardware e.g. pins/screws/ rods Left: Wrist
--- NOTE | 2024-03-26 20:45 | ED.GENADULT ---
HPI - General Adult General Date Seen: 03/26/24 Chief complaint: Dizziness/Vertigo Stated complaint: low blood pressure, possible heat stroke Time Seen by Provider: 03/26/24 20:01 Source: patient Mode of arrival: ambulatory Limitations: no limitations History of Present Illness HPI narrative: Patient is a 58-year-old male presenting to the emergency department for lightheadedness and dizziness. 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 He thinks he was not eating or drinking enough during this time. About 18:00 he started to feel very lightheaded and he lay down. Symptoms seem to get a little bit better but did not completely go away so came to the emergency department for evaluation. I time I evaluated the patient nursing staff has already started a L of normal saline for him he states he is feeling back to normal at this time. Does state he has a history of lightheadedness and has passed out before. Denies fevers, chills, chest pain, shortness of breath, abdominal pain, diarrhea, constipation. Does states he felt like he is having some difficulty breathing earlier but that has since also resolved. Denies any history of heart issues. No other concerns noted at this time. Related Data Previous Rx's ?Medication ?Instructions ?Recorded sildenafil 100 mg tablet 100 mg PO QDAY PRN sexual activity 03/17/23 #6 tabs Allergies Allergy/AdvReac Type Severity Reaction Status Date / Time No Known Drug Allergies Allergy Verified 02/18/24 09:05 Review of Systems Status of ROS: Reports: 10 or more systems reviewed and unremarkable except as noted in History and below PFSH [facility] Medical History Right lower quadrant abdominal pain ?R10.31 - Right lower quadrant pain (ICD-10) Right carpal tunnel syndrome ?G56.01 - Carpal tunnel syndrome, right upper limb (ICD-10) Surgical History History of open reduction and internal fixation (ORIF) procedure (06/06/23) ?Z98.890 - Other specified postprocedural states (ICD-10) Status post Mohs micrographic surgery for basal cell carcinoma (BCC) ?Z98.890 - Other specified postprocedural states (ICD-10) ?Z85.828 - Personal history of other malignant neoplasm of skin (ICD-10) Family History Mother No problems noted. Sister No problems noted. Social History Narrative: -Christie Patient is retired. He is very active. Smoking Status: Never smoker Do you use any of these nicotine containing products: None Second hand tobacco smoke exposure: No How often do you have a drink containing alcohol: never AUDIT-C Alcohol total score: 0 Non-prescribed substance use: denies use Little interest or pleasure in doing things: not at all Feeling down, depressed, or hopeless: not at all Exam Narrative: Exam Narrative: Const: Well-nourished, Well-developed, in no distress Eyes: PERRL, no conjunctival injection, and symmetrical lids HENT: Atraumatic external nose and ears. Moist mucous membranes. Neck: Symmetric, trachea midline, No thyromegaly. CVS: RRR, No murmurs or gallops. Peripheral pulses 2+ and equal in all extremities RESP: Unlabored respiratory effort. Clear to auscultation bilaterally. GI: Nontender/Nondistended, No rebound or guarding. MSK:Extremities w/o deformity, Normal Active ROM Skin: Warm, Dry. No rashes or lesions. Neuro: Normal Muscle tone, No focal neurological deficits. Psych: Awake, Alert, & Oriented x3. Appropriate mood and affect. Const: Vital Signs, click to edit/add: Vital Signs - 24 hr 03/26/24 19:47 03/26/24 21:00 03/26/24 23:05 Temperature 97.6 F Pulse Rate [Pulse Oximeter] 103 H 88 Pulse Rate [orthos tatic lying Left P ulse Oximeter] 89 Pulse Rate [orthos tatic sitting Left Pulse Oximeter] 92 Pulse Rate [orthos tatic standing Lef t Pulse Oximeter] 98 Respiratory Rate 20 18 Blood Pressure [Ri ght Upper Arm] 114/79 129/88 Blood Pressure [or thostatic lying Ri ght Arm] 123/89 Blood Pressure [or thostatic sitting Right Arm] 114/84 Blood Pressure [or thostatic standing Right Arm] 122/84 Pulse Oximetry 100 98 Oxygen Delivery Me thod Room Air Course Vital Signs Vital signs: Initial Vital Signs Temperature 97.6 F 03/26/24 19:47 Temperature Source Temporal Artery Scan 03/26/24 19:47 Pulse Rate 103 H 03/26/24 19:47 Respiratory Rate 20 03/26/24 19:47 Blood Pressure 114/79 03/26/24 19:47 Blood Pressure Mean 90 03/26/24 19:47 Blood Pressure Position Sitting 03/26/24 19:47 Pulse Oximetry 100 03/26/24 19:47 Vital Signs Temperature 97.6 F 03/26/24 19:47 Pulse Rate 103 H 03/26/24 19:47 Respiratory Rate 20 03/26/24 19:47 Blood Pressure 114/79 03/26/24 19:47 Pulse Oximetry 100 03/26/24 19:47 Temperature 97.6 F 03/26/24 19:47 Pulse Rate 88 03/26/24 23:05 Respiratory Rate 18 03/26/24 23:05 Blood Pressure 129/88 03/26/24 23:05 Pulse Oximetry 98 03/26/24 23:05 Oxygen Delivery Method Room Air 03/26/24 23:05 Medications Administered Medications: Discontinued Medications Generic Name Dose Route Start Last Admin Trade Name Freq PRN Reason Stop Dose Admin Sodium Chloride 1,000 mls @ 1,000 mls/hr 03/26/24 20:30 03/26/24 21:30 0.9 % Sodium Chloride 1000 Ml IV 03/26/24 21:29 Infused .Q1H ELKE Infusion Lactated Ringer's 1,000 mls @ 1,000 mls/hr 03/26/24 21:51 03/26/24 23:04 Lactated Ringers 1000 Ml IV 03/26/24 22:50 Infused .Q1H ONE Infusion Ondansetron HCl 4 mg 03/26/24 21:20 03/26/24 21:28 Ondansetron 2 Mg/Ml Inj IVP 03/26/24 21:21 4 mg ONCE ONE Administration Medical Decision Making MDM Narrative Medical decision making narrative: Patient is a 58-year-old male presenting for an episode of lightheadedness they states that longer than his previous episodes. He also got nauseated with it and was concerned. States he has been very active all day and thought he is drinking plenty of water but does states he was not eating very much food. He is now asymptomatic and was initially tachycardic his heart rate is now within the 90s. Is not having any chest pain or shortness of breath at this time. Believe he is very unlikely has a PE. I will do CBC, CMP, magnesium, troponin, EKG to evaluate the heart. Since he is not having any chest pain or not believe chest x-ray is necessary. Will give him a L of fluids. Lab work all returned showing no concerning abnormalities. He is otherwise feeling much better at this time he states. He did ask for another L fluids and did have some nausea lab was given Zofran 4. States he is no longer feeling nauseated. EKG shows no concerning abnormalities. Did repeat troponin which is within normal limits. Considering that looks otherwise well now and now he is asymptomatic. Also was talking to him his heart rate is now in the 70s. Orthostatic blood pressures were done and he was asymptomatic and within normal range. He is safe for discharge at this time. He is agreeable to this plan. I informed to follow-up with his primary care provider. Lab Data Labs: Lab Results 03/26/24 03/26/24 03/26/24 Range/Units 20:05 20:28 22:16 WBC 8.26 (4.50-11.00) K/uL RBC 4.28 L (4.30-5.90) m/uL Hgb 13.2 L (13.5-17.5) gm/dL Hct 39.7 (37.0-53.0) % MCV 93 (80-100) fL MCH 31 (26-34) pg MCHC 33 (32-36) gm/dL RDW Coeff of Don 13.0 (11.5-15.5) % Plt Count 251 (140-440) K/uL Neut % (Auto) 75.4 H (42.0-72.0) % Lymph % (Auto) 19.4 L (20-44) % Knott % (Auto) 4.5 (0.0-11.0) % Eos % (Auto) 0.1 (0.0-7.0) % Baso % (Auto) 0.4 (0.0-3.0) % Neut # (Auto) 6.20 (1.7-7.0) K/uL Lymph # (Auto) 1.60 (0.90-2.90) K/uL Knott # (Auto) 0.40 (0.00-0.90) K/UL Eos # (Auto) 0.01 (0.00-0.50) K/uL Baso # (Auto) 0.03 (0.00-0.30) K/uL Abs Immat Gran (auto) 0.02 (0.00-0.30) K/uL Imm/Tot Granulo (auto) 0.2 % Sodium 136 (135-149) mmol/L Potassium 4.1 (3.6-5.1) mmol/L Chloride 104 (96-114) mmol/L Carbon Dioxide 23 (20-32) mmol/L Anion Gap 9 (7-15) mEq/L BUN 23 (7-30) mg/dL Creatinine 1.4 (0.5-1.5) mg/dL Estimated Creat Clear 64.21 Estimated GFR 58 ml/min Glucose 202 H (60-115) mg/dL Calcium 8.9 (8.4-10.6) mg/dL Magnesium 2.5 (1.5-2.6) mg/dL Total Bilirubin 1.0 (0.1-1.5) mg/dL AST 35 (12-35) U/L ALT 23 (4-50) U/L Alkaline Phosphatase 71 (40-150) U/L Total Protein 8.9 H (6.0-8.3) g/dL Albumin 5.0 (3.3-5.0) g/dL POC Troponin I 0.01 0.02 (0.01-0.04) ng/ml ECG Data Attestation: I personally reviewed and interpreted this ECG as follows: Prior ECG tracings: available for review Interpretation: Normal sinus rhythm with a rate of 96 beats per minute, normal intervals, normal axis, no ST or T-wave abnormalities Discharge Plan Discharge Clinical Impression: Episodic lightheadedness Patient Disposition: Home, Self-Care Condition: Improved Instructions: Near Syncope (ED) Additional Instructions: Make sure to stay well hydrated and eat a regular diet. Return to emergency department for new or worsening symptoms. Prescriptions: No Action sildenafil 100 mg tablet 100 mg PO QDAY PRN (Reason: sexual activity) Qty: 6 11RF Rx Instructions: administer 30 minutes to 4 hours before activity Follow Up/Referrals: Glenn Nunes MD [Primary Care Provider] - Stand Alone Forms: [facility] Info Instructions
[2024-03-26 20:48] LABS: Chloride* 104 mmol/L (96-114)
[2024-03-26 20:49] LABS: Potassium* 4.1 mmol/L (3.6-5.1); Sodium* 136 mmol/L (135-149)
[2024-03-26 20:51] LABS: Alanine Aminotransferase* 23 U/L (4-50); Alkaline Phosphatase* 71 U/L (40-150); Anion Gap 9 mEq/L (7-15); Aspartate Amino Transferase* 35 U/L (12-35); Blood Urea Nitrogen* 23 mg/dL (7-30); Calcium* 8.9 mg/dL (8.4-10.6); Carbon Dioxide* 23 mmol/L (20-32); Creatinine* 1.4 mg/dL (0.5-1.5); Est. Creatinine Clearance* 64.21; Estimated Glomerular Filt Rate 58 ml/min; Glucose* 202 mg/dL (60-115); Total Protein* 8.9 g/dL (6.0-8.3)
[2024-03-26 20:52] LABS: Magnesium* 2.5 mg/dL (1.5-2.6)
[2024-03-26 21:00] VITALS: BP 114/84; BP 122/84; BP 123/89; PULSE 89; PULSE 92; PULSE 98
[2024-03-26] MEDS: ONDANSETRON 2 MG/ML inj 4 MG IVP (21:28)
[2024-03-26] MEDS: LACTATED RINGERS 1000 ML 1,000 ML IV (22:06)
[2024-03-26 22:47] LABS: Troponin, Point-of-Care* 0.02 ng/ml (0.01-0.04)
[2024-03-26 23:05] VITALS: BP 129/88; PULSE 88; RESP 18; O2SAT 98
== END 2024-03-26 23:06 | disposition home or self-care (01) ==
PROVIDERS: Emergency Provider Student in an Organized Health Care Education/Training Program; PCP Family Medicine
DX: R42 Dizziness and giddiness (principal)
CPT/HCPCS: 36415; 80053; 83735; 84484; 85025; 93005; 96361; 96374; 99283; 99284; J2405; J7030; J7120

== ENCOUNTER 2025-02-19 09:56 | Outpatient (CLI) | payer BC, SELFPAY | END 2025-02-19 09:57 | disposition home or self-care (01) | PROVIDERS: PCP Family Medicine; Visit Provider Family Medicine | DX: Z13.228 Encounter for screening for other metabolic disorders (principal); Z12.5 Encounter for screening for malignant neoplasm of prostate | CPT/HCPCS: 80048; G0103 ==

== ENCOUNTER 2025-10-14 14:37 | Outpatient (CLI) | payer BC, SELFPAY ==
[2025-10-14] MEDS: PERFLUTREN LIPID MICROSPHERES 2 ML VIAL IVP (15:27)
--- NOTE | 2025-10-14 15:47 | W.PM.STED ---
Stress Test Note Date Date Seen: 10/14/25 Date of test: 10/14/25 Providers Referring provider: Shania Sesay Primary care provider: Glenn Nunes Stress test physician: Caitlin Choi Stress Test Note Stress test ordered: Stress Echo Indication for test: History SVT episode Stress test medicine: Definity Results discussion: Resting EKG: Sinus rhythm, 64 beats per minute. Resting blood pressure: 102/68 Stress test: Patient is consented on ordered stress test treadmill exercise stress echo, agrees to proceed. Standard [facility] protocol was followed. Patient was exercised to 9 minutes, patient met target heart rate and needed definity. This was equivalent to 10.5 Mets. Patient had a maximum heart rate of 145 beats per minute which was 107% of a calculated target heart rate of 135. Patient had a maximal blood pressure of 148/80 during exercise, giving a rate pressure product of 21,460. Patient had no significant symptoms. There was no arrhythmia, no diagnostic EKG changes of ischemia. Echo images are pending to couple this for a full formal diagnostic. Impression: Subjectively negative, objectively negative EKG portion of this stress test. Follow up suggested: Patient is discharged in stable condition. He will await call back either from Cardiology or his primary provider on stress test results once echo images have been read.
[2025-10-14 15:53] VITALS: BP 118/68; PULSE 74; RESP 20; O2SAT 100
== END 2025-10-14 15:54 ==
LOC: STRESS 14:38
PROVIDERS: PCP Family Medicine; Visit Provider Internal Medicine Cardiovascular Disease
DX: I47.10 Supraventricular tachycardia, unspecified (principal)
CPT/HCPCS: 93016; 93325; 93351; Q9957